=== PATIENT | female | born 1970 | race Caucasian/White ===

== ENCOUNTER 2017-09-27 12:23 | Observation (INO) | payer OTHER ==
--- OUTSIDE RECORDS SUMMARY | 2017-09-27 12:26 | XMS REPORT | Clinical Summary ---
:1970 Author Organization [facility] Address [address] [place] [address] Phone Care Team Providers Name Role Phone Unavailable Primary Care Provider Unavailable Allergies No Known Allergies Current Medications Prescription Sig. Disp. Refills Start Date End Date Status venlafaxine Take 150 mg by Active (EFFEXOR-XR) 150 MG 24 mouth daily. hr capsule folic acid (FOLVITE) 1 Take 1 mg by Active MG tablet mouth daily. ALPRAZolam (XANAX) 0.25 Take 0.25 mg by 04/10/2014 Active MG tablet mouth every 8 (eight) hours as needed. hydroxychloroquine Take 400 mg by Active (PLAQUENIL) 200 mg mouth daily . tablet levothyroxine Take 50 mcg by Active (SYNTHROID, LEVOTHROID) mouth Every 50 MCG tablet morning on an empty stomach. cholecalciferol, Take 2,000 Units Active vitamin D3, 2,000 unit by mouth daily. Tab acetaminophen (TYLENOL) Take by mouth Active 325 MG tablet every 4 (four) hours as needed for Pain. ferrous sulfate 47.5 mg Take 25 mg by Active iron TbER mouth 2 (two) times daily . pantoprazole (PROTONIX) Take 40 mg by Active 40 MG tablet mouth daily as needed . bumetanide (BUMEX) 1 MG Take 1 tablet (1 90 tablet 3 01/07/2016 Active tablet mg total) by mouth daily. magnesium oxide Take 0.5 tablets 30 tablet 6 01/07/2016 Active (MAG-OX) 400 mg tablet (200 mg total) by mouth daily. metoprolol (TOPROL-XL) Take 1 tablet (50 90 tablet 0 01/07/2016 Active 50 MG 24 hr tablet mg total) by mouth daily. allopurinol (ZYLOPRIM) Take 300 mg by 11/05/2015 Active 300 MG tablet mouth daily. aspirin 81 MG EC tablet Take 1 tablet (81 90 tablet 3 01/07/2016 mg total) by 7 mouth daily. metolazone (ZAROXOLYN) Take 1 tablet 30 tablet 6 01/07/2016 2.5 MG tablet (2.5 mg total) by 7 mouth every other day as needed (weight gain of > 3 lbs, unresponsive to bumex). amiodarone (PACERONE) Take 1 tablet 90 tablet 3 01/07/2016 200 MG tablet (200 mg total) by 7 mouth daily. atorvastatin (LIPITOR) Take 1 tablet (80 90 tablet 3 01/07/2016 80 MG tablet mg total) by 7 mouth nightly. potassium chloride SA Take 0.5 tablets 45 tablet 3 01/07/2016 (K-DUR,KLOR-CON) 20 MEQ (10 mEq total) by 7 tablet mouth daily. Active Problems Problem Noted Date Multifocal pneumonia 04/13/2016 S/P aortic valve replacement with metallic valve 12/20/2015 S/P MVR, AVR, tricuspid valve repair 12/17; ileus/SBO 12/20/2015 S/P TVR (tricuspid valve repair) 12/20/2015 Postprocedural hypotension 12/18/2015 Chronic atrial fibrillation (HCC) 12/18/2015 Acute pulmonary insufficiency following thoracic surgery (HCC) 12/18/2015 Postoperative anemia due to acute blood loss 12/18/2015 Thrombocytopenia (HCC) 12/18/2015 Hyperglycemia 12/18/2015 Antiphospholipid syndrome (HCC) 12/11/2015 Atrial flutter (HCC) 12/11/2015 CKD (chronic kidney disease) stage 3, GFR 30-59 ml/min 12/11/2015 Anemia associated with acute blood loss 09/13/2015 Warfarin-induced coagulopathy (HCC) 09/13/2015 NURY (acute kidney injury) (HCC) 09/13/2015 Gastrointestinal hemorrhage 09/12/2015 Overview: UPDATED BY ICD10 SNOMED/IMO UPDATES Normochromic normocytic anemia 08/22/2015 NURY (acute kidney injury) ([facility]) 08/22/2015 Chronic anticoagulation 08/22/2015 Diabetes mellitus (HCC) 08/22/2015 Acute respiratory failure with hypoxia ([facility]) 08/22/2015 Respiratory distress 08/18/2015 Bilateral pneumonia 08/18/2015 Acute exacerbation of CHF (congestive heart failure) ([facility]) 08/18/2015 Hypokalemia 05/21/2015 Severe dehydration 05/20/2015 Troponin level elevated 05/20/2015 Epistaxis 04/22/2015 Overview: Recurrent and severe despite attempts at cautery. Meanwhile, we cannot discontinue anticoagulation. 04/22/2015 Sarath Escobar MD Pack out tomorrow and possible explanation. 04/23/2015 Sarath Escobar MD Left atrial flutter by electrocardiogram ([facility]) 04/15/2015 Overview: Recurrent but a poor candidate for RFA. Pursue rate control. 04/15/2015 Sarath Escobar MD Current rate control adequate on multiple Rx. 04/23/2015 Sarath Escobar MD Tricuspid regurgitation 04/08/2015 Overview: Our principle issue and although her weight has not changed, she feels better. jmw 04/08/2015 Tricuspid insufficiency 04/02/2015 Overview: Severe due to volume overload and RV decompensation. 04/02/2015 Sarath Escobar MD Substantially better with diuresis. 04/15/2015 Sarath Escobar MD Compensated at current volume state. 04/23/2015 Sarath Escobar MD Focal glomerular sclerosis 02/14/2015 Hyperlipidemia 11/21/2014 Ovarian cyst 08/12/2014 Lupus anticoagulant disorder (HCC) 04/16/2014 Overview: 07/02/14 Progressive thrombus on MV despite adequate OAC will require MVR after stabilization if possible. 07/05 She remains in a systemic inflammatory state but is not worsening. Meanwhile, she is not responding well to UFH. Discussed with Dr. Mahajan and Dr. Madrid. We'll start DTI and hopefully continue empiric Abx. Sarath Escobar MD 07/25 she had resolution on DTI but she has developed liver failure. We should move from arg to angiomax to continue AC and consider non warfarin therapy despite the absence of data. Sarath Escobar MD After epistaxis, nearing therapeutic INR. 04/23/2015 Sarath Escobar MD S/P MVR (mitral valve replacement) 04/16/2014 Lumbar spinal stenosis 04/16/2014 Cervical disc disease with myelopathy 02/03/2013 Herniated nucleus pulposus, cervical 01/24/2013 Hypertension Overview: treated since 2006 Renal failure Overview: 06/[address] Awan. We'll allow more time for renal recovery before operation. Tentatively, we'll look at next week. Sarath Escobar MD Diabetes (HCC) Encounters Date Type Specialty Care Team Description 10/28/2016 Hospital Encounter Radiology [facility] Douglass Rheumatic mitral valve MD Abraham disease;Rheumatic tricuspid insufficiency 10/23/2016 Outside Orders Central Scheduling Monroe Douglass Rheumatic mitral valve MD Abraham disease (Primary Dx);Rheumatic tricuspid insufficiency after 09/26/2016 Immunizations Name Dates Previously Given Next Due Influenza Three-TIV PF 5+ YRS 04/21/2015 Family History Medical History Relation Name Comments Drug abuse Brother Heart disease Brother Arthritis Sister Relation Name Status Comments Brother Father Alive Mother Alive Sister Alive Social History Tobacco Use Types Packs/Day Years Used Date Former Smoker 1 30 Quit: 07/01/2014 Smokeless Tobacco: Never Used Alcohol Use Drinks/Week oz/Week Comments Yes social occasions Sex Assigned at Date Recorded Not on file Last Filed Vital Signs Not on file Plan of Treatment Health Maintenance Due Date Last Done Comments INFLUENZA VACCINE 02/21/2018 Implants Implanted Type Area Floor Covering Installer Device Expiration Model / Serial / Identifier Date Lot Dbx Rina,0.5cc - [id number] Bone N/A: MUSCULOSKELETAL 2014 [id number] / Implanted: Qty: 1 on 02/03/2013 by Chaes Cope MD Neck TRANSPLANT [id number] / Kit,Surgiflow Thrombo Strl 8ml - [id number] Cement/F N/A: RENE 2013 [id number] / Implanted: Qty: 1 on 02/03/2013 by Chase Cope MD iller/Ad Neck / [id number] Spacer,Cervical Lordotic Peek [place] Zero-P Va Std Ti 8mm - [id number] Spine N/ A: [employer] 05/22/2022 [id number] / Implanted: Qty: 1 on 02/03/2013 by Chase Cope MD Neck / [id number] Screw,Cervical Selfdrill Zero-P Va Ti 3.7x16mm - [id number] Spine N/A: [employer] [id number] / Implanted: Qty: 2 on 02/03/2013 by Chase Cope MD Neck / [id number] Valve,Mitral Mosaic 31mm - [id number] Valves [employer] CARDIAC 07/30/2018 [id number] / Implanted: Qty: 1 on 01/01/2015 by David Awan MD SURGERY [id number] / Valve Mitrl [facility] Std Mstr 27mm [id number] - [id number] Valves N/A: ST EMILY 11/09/2020 [id number] / Implanted: Qty: 1 on 12/18/2015 by Wilber Gross MD Heart MED:CARDIAC SURG [id number] / Valve Aort [facility] [place] 21mm - [id number] Valves N/A: ST EMILY 10/23/2017 [id number] / Implanted: Qty: 1 on 12/18/2015 by Wilber Gross MD Aorta MED:CARDIAC SURG [id number] / Results RHYTHM STRIP - SCAN (02/23/2017 10:21 AM)NM myocardial perfusion PET (rest and stress) (10/28/2016 2:33 PM) Specimen Performing Laboratory [facility] FINAL REPORT PROCEDURE:Rest/Stress MYOCARDIAL PERFUSION PET with regadenoson\XA9\ CPT CODE:98013 INDICATION:Rheumatic mitral and tricuspid valve disease HISTORY:Cardiac risk factors: Diabetes, hypertension, hyperlipidemia. Other cardiovascular history: CHF and h/o MVR in 10/2015. Recent cardiac symptoms: None. Current cardiovascular-related medications: Aspirin, amiodarone, bumetanide, coumadin, Lipitor, losartan, metoprolol. PROTOCOL:Limited low-dose CT imaging was performed for attenuation correction. 40.0 mCi of Rb-82 chloride was injected iv at rest, and gated PET (positron emission tomography) images were obtained. Subsequently, 40.0 mCi of Rb-82 chloride was injected iv at expected peak pharmacologic effect, and gated PET images were obtained. PRELIMINARY STRESS TEST DATA FROM NONINVASIVE CARDIOLOGY: Pharmacologic stress was by 10-second iv infusion of 0.4 mg of regadenoson. Radiotracer was injected 30 seconds after start of stress. Heart rate was 75 beats/min at rest and 76 beats/min (44% of MPHR) at tracer injection. BP was 90/51 mmHg at rest and 99/43 mmHg at tracer injection. Stress was stopped for predetermined endpoint. The patient experienced dyspnea and flushing; treatment was not required. Preliminary ECG evaluation revealed sinus rhythm at rest and no ischemic changes with stress. (Final ECG interpretation and other stress and monitoring data are reported separately by Cardiology.) IMAGING FINDINGS:Study quality is good. Images obtained at rest and after stress injection show normal tracer uptake. LV volume appears mildly dilated. RV volume appears normal. Gated images obtained immediately after stress and at rest show mild hypokinesis of the mid to apical inferior LV wall segments. LVEF at rest is 42%. LVEF at stress is 46%. IMPRESSION: 1. Abnormal study.2. Appropriate pharmacologic stress.3. Normal myocardial perfusion.4. Mildly reduced resting LV function. No deterioration of function is noted with pharmacologic stress.5. Extracardiac tracer distribution is normal.6. No previous [facility] study for comparison. NONINVASIVE RISK STRATIFICATION: The above findings are considered intermediate risk (1% to 3% annual mortality rate) based on the following criterion: - Mild/moderate resting left ventricular dysfunction (LVEF 35% to 49%) (JACC. 2012;59(9):857-81.) Signed: Nadia Goodwin MD Report Verified Date/Time:10/28/2016 15:33:49 Reading Location: [address] Reading Room Procedure Note Interface, External Ris In - 10/28/2016 3:36 PM CDT FINAL REPORT PROCEDURE: Rest/Stress MYOCARDIAL PERFUSION PET with regadenoson\XA9\ CPT CODE: 29024 INDICATION: Rheumatic mitral and tricuspid valve disease HISTORY: Cardiac risk factors: Diabetes, hypertension, hyperlipidemia. Other cardiovascular history: CHF and h/o MVR in 10/2015. Recent cardiac symptoms: None. Current cardiovascular-related medications: Aspirin, amiodarone, bumetanide, coumadin, Lipitor, losartan, metoprolol. PROTOCOL: Limited low-dose CT imaging was performed for attenuation correction. 40.0 mCi of Rb-82 chloride was injected iv at rest, and gated PET (positron emission tomography) images were obtained. Subsequently, 40.0 mCi of Rb-82 chloride was injected iv at expected peak pharmacologic effect, and gated PET images were obtained. PRELIMINARY STRESS TEST DATA FROM NONINVASIVE CARDIOLOGY: Pharmacologic stress was by 10-second iv infusion of 0.4 mg of regadenoson. Radiotracer was injected 30 seconds after start of stress. Heart rate was 75 beats/min at rest and 76 beats/min (44% of MPHR) at tracer injection. BP was 90/51 mmHg at rest and 99/43 mmHg at tracer injection. Stress was stopped for predetermined endpoint. The patient experienced dyspnea and flushing; treatment was not required. Preliminary ECG evaluation revealed sinus rhythm at rest and no ischemic changes with stress. (Final ECG interpretation and other stress and monitoring data are reported separately by Cardiology.) IMAGING FINDINGS: Study quality is good. Images obtained at rest and after stress injection show normal tracer uptake. LV volume appears mildly dilated. RV volume appears normal. Gated images obtained immediately after stress and at rest show mild hypokinesis of the mid to apical inferior LV wall segments. LVEF at rest is 42%. LVEF at stress is 46%. IMPRESSION: 1. Abnormal study. 2. Appropriate pharmacologic stress. 3. Normal myocardial perfusion. 4. Mildly reduced resting LV function. No deterioration of function is noted with pharmacologic stress. 5. Extracardiac tracer distribution is normal. 6. No previous [facility] study for comparison. NONINVASIVE RISK STRATIFICATION: The above findings are considered intermediate risk (1% to 3% annual mortality rate) based on the following criterion: - Mild/moderate resting left ventricular dysfunction (LVEF 35% to 49%) (JACC. 2012;59(9):857-81.) Signed: Nadia Goodwin MD Report Verified Date/Time: 10/28/2016 15:33:49 Reading Location: [address] Med Reading Room Treadmill tolerance(Non-Nuclear Treadmill) (10/28/2016 2:17 PM) Specimen Performing Laboratory [employer] Narrative Protocol Name Regadenoson Time In Exercise Phase 00:01:00 Max. Systolic BP 99 mmHg Max Diastolic BP 43 mmHg Max Heart Rate 76 BPM Max Predicted Heart Rate 172 BPM Reason For Termination Predetermined end point Reason for Test Pre Op Cardiac Clearance Target HR Formula (220 - Age)*100% Arrhythmias Resting ECG Normal sinus rhythm ST Changes No Significant Changes Overall Impression Indeterminate due to pharmacological stress Chest Pain none HR Response To Exercise BP Response To Exercise ASA AMIODARONE bumetadine Coumadin LIPITOR LOSARTAN metoprolol Confirmed by fellow Jaime Alford ([id number]) on 10/28/2016 2:53:19 PM Confirmed by MD LARIOS JORGE ([id number]) on 11/02/2016 2:38:54 PM Procedure Note Interface, External Ris In - 11/02/2016 2:39 PM CDT Protocol Name Regadenoson Time In Exercise Phase 00:01:00 Max. Systolic BP 99 mmHg Max Diastolic BP 43 mmHg Max Heart Rate 76 BPM Max Predicted Heart Rate 172 BPM Reason For Termination Predetermined end point Reason for Test Pre Op Cardiac Clearance Target HR Formula (220 - Age)*100% Arrhythmias Resting ECG Normal sinus rhythm ST Changes No Significant Changes Overall Impression Indeterminate due to pharmacological stress Chest Pain none HR Response To Exercise BP Response To Exercise ASA AMIODARONE bumetadine Coumadin LIPITOR LOSARTAN metoprolol Confirmed by fellow Jaime Alford ([id number]) on 10/28/2016 2:53:19 PM Confirmed by MD LARIOS JORGE ([id number]) on 11/02/2016 2:38:54 PM after 09/26/2016
[2017-09-27 14:58] LABS: Absolute Lymphocytes (CBC) 0.6 K/uL (0.7-4.9); Absolute Monocytes 0.3 K/uL (0.1-1.3); Absolute Neutrophil 10.4 K/uL (1.8-8.0); Basophils % 0.4 % (0-1.3); Eosinophils % 0.2 % (0-4.4); Hematocrit 20.9 % (36.0-45.0); Lymphocytes % 4.9 % (15.3-44.8); MCH 31.4 pg (27.0-35.0); MCV 98.4 fL (80-100); MPV 8.2 fL (7.6-11.3); Monocytes % 2.5 % (3.3-12.3); Protime INR 2.21; RBC Red Blood Cell Count 2.12 M/uL (3.86-4.86)
[2017-09-27 15:07] LABS: Potassium 4.3 mEq/L (3.6-5.0)
[2017-09-27 15:14] LABS: Albumin 3.8 g/dL (3.2-5.5); Bilirubin Direct 0.1 mg/dL (0-0.2); Bilirubin Total 0.8 mg/dL (0.3-1.2); Protein, Total 6.6 g/dL (6.0-8.3)
[2017-09-27 15:19] LABS: Urine Blood TRACE (NEG); Urine Glucose NEGATIVE (NEG); Urine Protein 2+ (NEG)
[2017-09-27 15:20] LABS: Magnesium 1.2 mg/dL (1.8-2.5)
--- NOTE | 2017-09-27 16:29 | ER ---
Nurse's Notes [facility] Name: June Stokes Age: 47 yrs Sex: Female : 1970 Arrival Date: 09/27/2017 Time: 12:28 Bed 27 Private MD: out of town, doctor Diagnosis: Anemia in chronic diseases classified elsewhere-Symptomatic Presentation: 09/27 12:42 Presenting complaint: Patient states: Dr. Waite office called me and told me my Hgb- hj 6.9; told me to come up here and be admitted;. Transition of care: patient was not received from another setting of care. Onset of symptoms was September 27, 2017. Initial Sepsis Screen: Does the patient meet any 2 criteria? No. Patient's initial sepsis screen is negative. Does the patient have a suspected source of infection? No. Patient's initial sepsis screen is negative. Care prior to arrival: None. 12:42 Method Of Arrival: Ambulatory 12:42 Acuity: CA 3 hj Triage Assessment: 12:44 General: Appears in no apparent distress. uncomfortable, Behavior is calm, cooperative, hj appropriate for age. Pain: Denies pain. 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: 12:44 LMP N/A - Post-menopause hj Historical: - Allergies: 12:44 No Known Allergies; hj - Home Meds: 12:44 Allopurinol Oral [Active]; Amiodarone Oral [Active]; aspirin 325 mg Oral tab 1 tab once hj daily [Active]; atorvastatin 80 mg Oral tab 1 tab once daily [Active]; Bumetanide Oral [Active]; Coumadin Oral [Active]; Folic Acid Oral [Active]; Humalog Sub-Q [Active]; humulin [Active]; hydroxychloroquine 200 mg Oral tab 2 tabs once daily [Active]; levothyroxine 50 mcg tab 1 tab once daily [Active]; magnesium oxide 400 mg Oral cap daily [Active]; metolazone 2.5 mg Oral tab 1 tab once daily [Active]; Metoprolol Tartrate Oral [Active]; potassium chloride 20 mEq Oral TbER 1 tab once daily [Active]; prednisone 20 mg Oral tab once daily [Active]; venlafaxine 150 mg Oral cp24 1 cap once daily [Active]; - PMHx: 12:44 antiphospholipid syndrome; Diabetes - IDDM; heart disease; Hemolytic Anemia; hj Hypertension; Hypothyroidism; mitral valve prolapse; - PSHx: 12:44 mitral valve replacement; Hysterectomy; surgery to right arm (clot); hj - Immunization history:: Adult Immunizations up to date. - Social history:: Smoking status: Patient/guardian denies using tobacco, never smoked. Screenin:50 Abuse screen: Denies threats or abuse. Nutritional screening: No deficits noted. tl3 Tuberculosis screening: No symptoms or risk factors identified. Fall Risk None identified. Assessment: 13:33 General: Appears in no apparent distress. comfortable, well groomed, well developed, tl3 well nourished, Behavior is calm, cooperative, appropriate for age. Pain: Denies pain. Neuro: Level of Consciousness is awake, alert, obeys commands, Oriented to person, place, time, situation, Appropriate for age. Cardiovascular: Denies chest pain, Heart tones S1 S2 present Capillary refill < 3 seconds in bilateral fingers. Cardiovascular: Reports blood test shoe HGB 6.9 at primary care office today here for transfusion, hemolytic anemia, multiple heart valves replaced. Respiratory: Breath sounds are clear Breath sounds are coarse bilaterally. GI: No signs and/or symptoms were reported involving the gastrointestinal system. : No signs and/or symptoms were reported regarding the genitourinary system. EENT: No signs and/or symptoms were reported regarding the EENT system. Derm: Bruising that is dark purple, on right arm and left arm. Musculoskeletal: No signs and/or symptoms reported regarding the musculoskeletal system. 14:44 Reassessment: Patient appears in no apparent distress at this time. No changes from tl3 previously documented assessment. Patient and/or family updated on plan of care and expected duration. Pain level reassessed. Patient is alert, oriented x 3, equal unlabored respirations, skin warm/dry/pink. mid line placed, blood drawn by JERILYN Hanna and sent to lab. 15:10 Reassessment: critical lab alert, 6.7 hemoglobin, 20.9 HCT, IMAN Curry notified. em 15:48 Reassessment: Patient appears in no apparent distress at this time. No changes from tl3 previously documented assessment. Patient and/or family updated on plan of care and expected duration. Pain level reassessed. Patient is alert, oriented x 3, equal unlabored respirations, skin warm/dry/pink. pt sleeping, mother went home. 17:10 Reassessment: Patient appears in no apparent distress at this time. No changes from tl3 previously documented assessment. Patient and/or family updated on plan of care and expected duration. Pain level reassessed. Patient is alert, oriented x 3, equal unlabored respirations, skin warm/dry/pink. pt awaiting admit, no needs at this time. 20:18 Reassessment: Patient appears in no apparent distress at this time. No changes from tl3 previously documented assessment. Patient and/or family updated on plan of care and expected duration. Pain level reassessed. Patient is alert, oriented x 3, equal unlabored respirations, skin warm/dry/pink. report called to Sudha JEAN-BAPTISTE. Vital Signs: 12:44 BP 120 / 73; Pulse 99; Resp 18; Temp 98.2(TE); Pulse Ox 98% on R/A; Weight 99.79 kg; hj Height 5 ft. 6 in. (167.64 cm); Pain 0/10; 14:44 BP 109 / 91; Pulse 99; Resp 20; Pulse Ox 100% on 2 lpm NC; tl3 15:48 BP 94 / 73; Pulse 88; Resp 18; Pulse Ox 100% on 2 lpm NC; tl3 17:10 BP 110 / 82; Pulse 92; Resp 18; Pulse Ox 100% ; tl3 20:18 Pulse 83; Resp 16; Pulse Ox 100% ; tl3 12:44 Body Mass Index 35.51 (99.79 kg, 167.64 cm) ED Course: 12:28 Patient arrived in ED. mr 12:29 out of town, doctor is Private Physician. mr 12:43 Triage completed. hj 12:44 Arm band placed on right wrist. hj 13:11 Luis Bustillo PA is PHCP. cp 13:11 Pietro Malik MD is Attending Physician. cp 13:33 Ashli Cartwright, JERILYN is Primary Nurse. tl3 13:50 Patient has correct armband on for positive identification. Bed in low position. Call tl3 light in reach. Side rails up X 1. Adult w/ patient. Warm blanket given. 13:50 No provider procedures requiring assistance completed. Missed attempt(s): 20 gauge in tl3 right forearm. 14:20 EKG done, by optometric technologist. reviewed by Luis VALERIO. at1 14:45 Accessed peripheral vein via ultrasound, utilizing dynamic ultrasound technique using la1 18G Sureflo IV catheter. 16:02 Served as a ingot buggy operator during rectal exam. tl3 16:28 Rashida Pate MD is Hospitalizing Provider. cp 17:13 Bb Add On Sent. tl3 20:18 No apparent distress. Awaiting: to go to room. tl3 20:18 Patient admitted, IV remains in place. tl3 Administered Medications: No medications were administered Outcome: 16:29 Decision to Hospitalize by Provider. cp 20:18 Admitted to Med/surg accompanied by tech, via wheelchair, with chart, Report called to tl3 JERILYN Haley 20:18 Condition: stable 20:18 Instructed on the need for admit. 21:08 Patient left the ED. tl3 Signatures: Sherry Menon mr Crabtree, Osman, LOCKSTITCH BACK MAKER LOCKSTITCH BACK MAKER em Oliva ramos, hall clerk EKG Tat1 Jacques Spaulding RN RN la1 Tk Chapman RN Luis Washington PA PA cp Ashli Cartwrigth, RN RN tl3 Corrections: (The following items were deleted from the chart) 12:46 12:44 Pulse 99bpm; Resp 18bpm; Pulse Ox 95% RA; Temp 98.2F Temporal; 99.79 kg; Height 5 hj ft. 6 in.; BMI: 35.5; Pain 0/10; hj 12:47 12:44 Pulse 99bpm; Resp 18bpm; Pulse Ox 98% RA; Temp 98.2F Temporal; 99.79 kg; Height 5 hj ft. 6 in.; BMI: 35.5; Pain 0/10; hj
--- NOTE | 2017-09-27 16:30 | EDPHYS ---
Physician Documentation [facility] Name: June Stokes Age: 47 yrs Sex: Female : 1970 Arrival Date: 09/27/2017 Time: 12:28 Bed 27 Private MD: out of town, doctor ED Physician Pietro Malik HPI: 09/27 14:15 This 47 yrs old Female presents to ER via Ambulatory with complaints of cp Abnormal Lab Results. 14:15 Onset: The symptoms/episode began/occurred gradually. cp 14:15 Associated signs and symptoms: Pertinent positives: general weakness, fatigue. Patient cp reports having blood drawn by office of Dr Waite and being told she needs to proceed to ED for evaluation of anemia. LEGAL SECRETARY: 12:44 LMP N/A - Post-menopause hj Historical: - Allergies: 12:44 No Known Allergies; hj - Home Meds: 12:44 Allopurinol Oral [Active]; Amiodarone Oral [Active]; aspirin 325 mg Oral tab 1 tab once hj daily [Active]; atorvastatin 80 mg Oral tab 1 tab once daily [Active]; Bumetanide Oral [Active]; Coumadin Oral [Active]; Folic Acid Oral [Active]; Humalog Sub-Q [Active]; humulin [Active]; hydroxychloroquine 200 mg Oral tab 2 tabs once daily [Active]; levothyroxine 50 mcg tab 1 tab once daily [Active]; magnesium oxide 400 mg Oral cap daily [Active]; metolazone 2.5 mg Oral tab 1 tab once daily [Active]; Metoprolol Tartrate Oral [Active]; potassium chloride 20 mEq Oral TbER 1 tab once daily [Active]; prednisone 20 mg Oral tab once daily [Active]; venlafaxine 150 mg Oral cp24 1 cap once daily [Active]; - PMHx: 12:44 antiphospholipid syndrome; Diabetes - IDDM; heart disease; Hemolytic Anemia; hj Hypertension; Hypothyroidism; mitral valve prolapse; - PSHx: 12:44 mitral valve replacement; Hysterectomy; surgery to right arm (clot); hj - Immunization history:: Adult Immunizations up to date. - Social history:: Smoking status: Patient/guardian denies using tobacco, never smoked. ROS: 14:16 Eyes: Negative for injury, pain, redness, and discharge. cp 14:16 Constitutional: Positive for fatigue, Negative for body aches, chills, fever, poor PO cp intake, weight loss. 14:16 ENT: Negative for drainage from ear(s), ear pain, sore throat, difficulty swallowing, difficulty handling secretions. 14:16 Cardiovascular: Negative for chest pain, edema, palpitations. 14:16 Respiratory: Negative for cough, shortness of breath, wheezing. 14:16 Abdomen/GI: Negative for abdominal pain, nausea, vomiting, and diarrhea, black/tarry stool, rectal bleeding. 14:16 Back: Negative for pain at rest, pain with movement, radiated pain. 14:16 Skin: Negative for cellulitis, rash. 14:16 Neuro: Positive for general weakness, Negative for altered mental status, dizziness, headache, loss of consciousness, syncope, near syncope. 14:16 All other systems are negative. Exam: 14:18 ECG was reviewed by the Attending Physician. cp 14:20 Constitutional: The patient appears in no acute distress, alert, awake, cp non-diaphoretic, non-toxic, well developed, well nourished. 14:20 Head/Face: Normocephalic, atraumatic. Eyes: Pupils equal round and reactive to light, cp extra-ocular motions intact. Lids and lashes normal. Conjunctiva and sclera are non-icteric and not injected. Cornea within normal limits. Periorbital areas with no swelling, redness, or edema. ENT: Nares patent. No nasal discharge, no septal abnormalities noted. Tympanic membranes are normal and external auditory canals are clear. Oropharynx with no redness, swelling, or masses, exudates, or evidence of obstruction, uvula midline. Mucous membranes moist. Neck: Trachea midline, no thyromegaly or masses palpated, and no cervical lymphadenopathy. Supple, full range of motion without nuchal rigidity, or vertebral point tenderness. No Meningismus. Chest/axilla: Normal chest wall appearance and motion. Nontender with no deformity. No lesions are appreciated. 14:20 Cardiovascular: Rate: normal, Rhythm: regular, Edema: is not appreciated, JVD: is not appreciated. 14:20 Respiratory: the patient does not display signs of respiratory distress, Respirations: normal, no use of accessory muscles, no retractions, no splinting, no tachypnea, labored breathing, is not present, Breath sounds: are clear throughout, no decreased breath sounds, no stridor, no wheezing. 14:20 Abdomen/GI: Inspection: abdomen appears normal, Bowel sounds: active, all quadrants, Palpation: abdomen is soft and non-tender, in all quadrants, rebound tenderness, is not appreciated, voluntary guarding, is not appreciated, involuntary guarding, is not appreciated. 14:20 Back: pain, is absent, ROM is normal. 14:20 Skin: cellulitis, is not appreciated, no rash present. 14:20 Neuro: Orientation: to person, place \T\ time. Mentation: lucid, able to follow commands, Cerebellar function: is grossly normal, Motor: moves all fours, strength is normal, Sensation: no obvious gross deficits. Vital Signs: 12:44 BP 120 / 73; Pulse 99; Resp 18; Temp 98.2(TE); Pulse Ox 98% on R/A; Weight 99.79 kg; hj Height 5 ft. 6 in. (167.64 cm); Pain 0/10; 14:44 BP 109 / 91; Pulse 99; Resp 20; Pulse Ox 100% on 2 lpm NC; tl3 15:48 BP 94 / 73; Pulse 88; Resp 18; Pulse Ox 100% on 2 lpm NC; tl3 17:10 BP 110 / 82; Pulse 92; Resp 18; Pulse Ox 100% ; tl3 20:18 Pulse 83; Resp 16; Pulse Ox 100% ; tl3 12:44 Body Mass Index 35.51 (99.79 kg, 167.64 cm) hj MDM: 13:11 Patient medically screened. 15:55 Data reviewed: vital signs, nurses notes, lab test result(s), EKG, and as a result, I will admit patient. 16:00 Counseling: I had a detailed discussion with the patient and/or guardian regarding: the historical points, exam findings, and any diagnostic results supporting the discharge/admit diagnosis, lab results, the need for further work-up and treatment in the hospital. 16:08 Physician consultation: Rashida Pate MD was called at 16:08, was contacted at 16:09, regarding admission, to the telemetry unit. patient's condition. 09/27 14:08 Order name: Basic Metabolic Panel; Complete Time: 15:50 09/27 15:51 Interpretation: Normal except: GLUC 187; BUN 53; CRE 2.09; GFR 25. cp 09/27 14:08 Order name: CBC with Diff; Complete Time: 15:50 cp 09/27 15:51 Interpretation: Normal except: WBC 11.3; RBC 2.12; HGB 6.7; HCT 20.9; MCV 98.4; RDW cp 19.0; MANDY% 92.0; LYM% 4.9; MN% 2.5; NEUT A 10.4; LYMA 0.6. 09/27 14:08 Order name: LFT's; Complete Time: 15:50 cp 09/27 14:08 Order name: Magnesium; Complete Time: 15:50 cp 09/27 14:08 Order name: PT-INR; Complete Time: 15:50 cp 09/27 14:08 Order name: Ptt, Activated; Complete Time: 15:50 cp 09/27 14:08 Order name: EKG; Complete Time: 14:09 cp 09/27 14:45 Order name: Type And Screen la1 09/27 14:52 Order name: Lactic Dehydrogenase; Complete Time: 15:50 EDMS 09/27 14:52 Order name: Retic Count; Complete Time: 15:50 EDMS 09/27 15:10 Order name: Urine Dipstick--Ancillary (enter results); Complete Time: 15:50 bd 09/27 15:57 Order name: Antibody Identification EDNC 09/27 16:08 Order name: Bb Add On bd 09/27 16:10 Order name: Packed RBC Leukored -1 EDNC 09/27 14:08 Order name: Cardiac monitoring; Complete Time: 15:48 cp 09/27 14:08 Order name: EKG - Nurse/Tech; Complete Time: 15:48 cp 09/27 14:08 Order name: IV Saline Lock; Complete Time: 15:48 cp 09/27 14:08 Order name: Labs collected and sent; Complete Time: 15:47 cp 09/27 14:08 Order name: O2 Per Protocol; Complete Time: 15:47 cp 09/27 14:08 Order name: O2 Sat Monitoring; Complete Time: 15:47 cp 09/27 14:08 Order name: Urine Dipstick-Ancillary (obtain specimen); Complete Time: 15:47 cp EC:18 Rate is 91 beats/min. Rhythm is regular. QRS interval is prolonged at 102 msec. QT cp interval is normal. T waves are Flattened in lead V3. Interpreted by me. Reviewed by me. Administered Medications: No medications were administered Disposition: 09/27/17 16:29 Hospitalization ordered by Rashida Pate for Observation. Preliminary diagnosis is Anemia in chronic diseases classified elsewhere - Symptomatic. - Bed requested for Telemetry/MedSurg (observation). - Status is Observation. tl3 - Condition is Stable. - Problem is chronic. - Symptoms are unchanged. UTI on Admission? No Addendum: 09/29/2017 20:15 Co-signature as Attending Physician, Pietro Malik MD. r n Signatures: Dispatcher [employer] EDMS Pietro Malik MD MD rn Joaquin, Henry RN Luis Washington PA PA cp Ruthie Kenyon RN RN Ashli Cartwright RN RN tl3 Corrections: (The following items were deleted from the chart) 09/27 15:51 15:50 Normal except: GLUC 187; BUN 53; CRE 2.09. cp cp 19:43 16:29 Hospitalization Ordered by Rashida Pate MD for Observation. Preliminary cg diagnosis is Anemia in chronic diseases classified elsewhere - Symptomatic. Bed requested for Telemetry/MedSurg (observation). Status is Observation. Condition is Stable. Problem is chronic. Symptoms are unchanged. UTI on Admission? No. cp 21:08 19:43 09/27/2017 16:29 Hospitalization Ordered by Rashida Pate MD for Observation. tl3 Preliminary diagnosis is Anemia in chronic diseases classified elsewhere - Symptomatic. Bed requested for Telemetry/MedSurg (observation). Status is Observation. Condition is Stable. Problem is chronic. Symptoms are unchanged. UTI on Admission? No. cg
--- NOTE | 2017-09-27 17:55 | EKG ---
Test Date: 2017-09-27 Test Time: 14:13:10 Hand Molder And Caster: CLAUDETTE MEASUREMENT RESULTS: Intervals: Rate: 91 OR: QRSD: 102 QT: 428 QTc: 526 [place]: P: OR: QRS: 27 T: 69 INTERPRETIVE STATEMENTS: Atrial fibrillation Nonspecific ST and T wave abnormality, probably digitalis effect Prolonged QT Abnormal ECG Compared to ECG 11/21/2015 06:51:06 Sinus rhythm no longer present First degree AV block no longer present ST (T wave) deviation still present Electronically Signed On 09-27-17 17:55:02 CDT by Ralegih Reid
[2017-09-27] MEDS ORDERED: ONDANSETRON 4 MG/2 ML VIAL IV PRN (20:48)
[2017-09-27] MEDS ORDERED: ACETAMINOPHEN 500 MG TAB PO PRN (20:48)
[2017-09-27 21:31] VITALS: BMI 35.9
[2017-09-28] MEDS ORDERED: NA CHLORIDE 0.9% 250 ML ONE ×4 (00:59→22:52)
[2017-09-28 01:54] LABS: Urine Appearance CLEAR; Urine Bilirubin NEGATIVE (NEG); Urine Blood NEGATIVE (NEG); Urine Color YELLOW; Urine Glucose NEGATIVE (NEG); Urine Protein 2+ (NEG); Urine Specific Gravity 1.015 (1.005-1.030); Urine Urobilinogen 0.2 mg/dL (0.2-1.0)
[2017-09-28 02:11] LABS: Urine Microscopic Reflex ORDER UMIC
[2017-09-28 03:23] LABS: Urine Bacteria <20 /HPF (<20); Urine Culture Reflex Order NOT NEEDED; Urine RBC <5 /HPF (NONE SEEN)
--- NOTE | 2017-09-28 05:25 | P.HP ---
Certification for Inpatient Patient admitted to: Observation With expected LOS: <2 Midnights Patient will require the following post-hospital care: None Practitioner: I am a practitioner with admitting privileges, knowledge of patient current condition, hospital course, and medical plan of care. Services: Services provided to patient in accordance with Admission requirements found in Title 42 Section 412.3 of the Code of Federal Regulations Patient History Date of Service: 09/27/17 Reason for admission: Anemic History of Present Illness: Patient is a 47-year-old female who came into the hospital with anemia. 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 Patient also has history of atrial fibrillation. patient is been on anti coagulation for her anti phospholipid antibody syndrome which requires an INR greater than 2.5. Patient currently is taking Coumadin. Patient denies any signs of active bleeding. She states she normally requires blood transfusions and she believes this because of her hemolytic anemia. Patient's labs do not indicate any significant degree of hemolysis. Patient is on prednisone 30 mg daily because of the hemolysis. Patient will be admitted to the hospital for blood transfusion and will possibly be discharged afterwards. Allergies No Known Allergies Allergy (Verified 09/27/17 21:31) Home Medications: Metoprolol Succinate 50 mg PO DAILY 08/18/14 Allopurinol 300 mg PO DAILY 08/30/14 Folic Acid 1 mg PO DAILY #30 tablet 08/31/14 Amiodarone HCl 200 mg PO DAILY 10/16/15 Atorvastatin Calcium 80 mg PO BEDTIME 10/16/15 Cholecalciferol (Vitamin D3) [Vitamin D3] 2,000 unit PO DAILY 10/16/15 Ferrous Sulfate [Slow Release Iron] 65 mg PO BEDTIME 10/16/15 Hydroxychloroquine [Plaquenil*] 400 mg PO DAILY 10/16/15 Potassium Chloride 10 meq PO DAILY 10/16/15 Prednisone [Deltasone*] 30 mg PO DAILY 10/17/15 Venlafaxine HCl [Venlafaxine HCl ER] 150 mg PO DAILY 10/17/15 Alprazolam [Xanax] 0.25 mg PO PRN PRN 05/01/17 Warfarin Sodium [Coumadin*] 10 mg PO SEECOM 05/01/17 Aspirin Chewable [Aspirin Chewable*] 81 mg PO DAILY #90 tab.chew 05/07/17 Levothyroxine [Synthroid*] 0.088 mg PO [id number] #30 tab 05/07/17 Pantoprazole [Protonix Tab*] 40 mg PO BIDAC #60 tab 05/07/17 Bumetanide [Bumex] 2 mg PO DAILY 09/28/17 Cyanocobalamin (Vitamin B-12) [Vitamin B12] 5,000 mcg PO DAILY 09/28/17 Losartan Potassium 25 mg PO DAILY 09/28/17 Metolazone [Zaroxolyn*] 2.5 mg PO PRN PRN 09/28/17 - Past Medical/Surgical History Has patient received pneumonia vaccine in the past: Yes Diabetic: No -: CHF, systolic, Low EF per patient -: Chronic renal disease -: Aortic Stenosis/Mitral valve disease -: Spinal stenosis with Neuropathy of L spine -: Atrial fibrillation -: Chronic anticoagulation -: Hemolytic Anemia -: Mitral valve repair due to Hyperclots, December 2014 -: Antiphospholipid Syndrome, Diagnosed in 2006 -: HTN -: Hypothyroidism -: Depression -: Mitral valve replaced x2 -: Hysterectomy -: Right arm bypass due to DVT Psychosocial/ Personal History: for 26 years, Children-2 boys, 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 - Family History Sister Medical History: Other (see notes) Notes: rheumatoid arthritis Brother Medical History: Heart disease - Social History Smoking Status: Former smoker Alcohol use: Yes CD- Drugs: No Caffeine use: Yes Place of Residence: Home Review of Systems 10-point ROS is otherwise unremarkable Physical Examination - Vital Signs Temperature: 97.4 F Blood Pressure: 197/88 Pulse: 79 Respirations: 18 Pulse Ox (%): 99 - Physical Exam General: Alert, In no apparent distress, Oriented x3 HEENT: Atraumatic, PERRLA, Mucous membr. moist/pink, EOMI, Sclerae nonicteric Neck: Supple, 2+ carotid pulse no bruit, No LAD, Without JVD or thyroid abnormality Respiratory: Clear to auscultation bilaterally, Normal air movement Cardiovascular: Regular rate/rhythm, Normal S1 S2, Systolic murmur Gastrointestinal: Normal bowel sounds, Soft and benign, Non-distended, No tenderness, No masses, No rebound Musculoskeletal: No clubbing, No swelling, No tenderness Integumentary: No rashes Neurological: Normal gait, Normal speech, Normal tone, Sensation intact, Cranial nerves 3-12 intact, Normal affect, Abnormal strength Lymphatics: No axilla or inguinal lymphadenopathy - Studies Laboratory Data (last 24 hrs) 09/27/17 14:42: PT 26.3 H, INR 2.21, APTT 27.9 09/27/17 14:42: WBC 11.3 H D, Hgb 6.7 L*, Hct 20.9 L*, Plt Count 245 09/27/17 14:42: Sodium 143, Potassium 4.3, BUN 53 H, Creatinine 2.09 H, Glucose 187 H, Magnesium 1.2 L* D, Total Bilirubin 0.8, AST 25, ALT 32, Alkaline Phosphatase 128 H Assessment & Plan - Problems (Diagnosis) (1) Anti-phospholipid antibody syndrome Current Visit: Yes Status: Acute (2) Anemia Onset Date: 11/22/15 Current Visit: No Status: Acute Qualifiers: Anemia type: other cause Other causes of anemia: acute posthemorrhagic Qualified Code(s): D62 - Acute posthemorrhagic anemia (3) Hemolytic anemia Onset Date: 08/20/14 Current Visit: No Status: Acute (4) Chronic renal failure Onset Date: 08/20/14 Current Visit: No Status: Chronic Qualifiers: Chronic kidney disease stage: stage 3 (moderate) Qualified Code(s): N18.3 - Chronic kidney disease, stage 3 (moderate) (5) Chronic steroid use Current Visit: No Status: Chronic (6) H/O heart valve replacement with mechanical valve Current Visit: No Status: Chronic (7) History of pulmonary embolism Current Visit: No Status: Chronic (8) Hypertension Onset Date: 08/20/14 Current Visit: No Status: Chronic Qualifiers: Hypertension type: essential hypertension Qualified Code(s): I10 - Essential (primary) hypertension (9) Hypothyroidism Onset Date: 05/03/17 Current Visit: No Status: Chronic Qualifiers: Hypothyroidism type: unspecified Qualified Code(s): E03.9 - Hypothyroidism , unspecified - Plan Plan: 1. Transfuse 2 units of packed red blood cells 2. Monitor H&H 3. Resume Coumadin 4. Resume prednisone 5. Continue with home medications 6. GI and DVT prophylaxis - Advance Directives Does patient have a Living Will: No Does patient have a Durable POA for Healthcare: No - Code Status/Comfort Care Code Status Assessed: Yes Code Status: Full Code Critical Care: No Time Spent Managing PTS Care (In Minutes): 50
[2017-09-28] MEDS ORDERED: ALPRAZOLAM 0.25 MG TABLET PO PRN (05:42)
[2017-09-28] MEDS ORDERED: METOLAZONE 2.5 MG TABLET PO PRN (05:42)
[2017-09-28] MEDS: LEVOTHYROXINE SOD 0.088 MG TAB PO SCH (06:33)
[2017-09-28 06:52] LABS: Absolute Lymphocytes (CBC) 0.8 K/uL (0.7-4.9); Absolute Monocytes 0.4 K/uL (0.1-1.3); Absolute Neutrophil 5.8 K/uL (1.8-8.0); Basophils % 0.4 % (0-1.3); Eosinophils % 0.8 % (0-4.4); Hematocrit 21.9 % (36.0-45.0); Lymphocytes % 11.7 % (15.3-44.8); MCH 33.2 pg (27.0-35.0); MCV 97.9 fL (80-100); MPV 7.8 fL (7.6-11.3); Monocytes % 5.1 % (3.3-12.3); RBC Red Blood Cell Count 2.24 M/uL (3.86-4.86)
[2017-09-28 07:12] LABS: Albumin 3.4 g/dL (3.2-5.5); Potassium 3.2 mEq/L (3.6-5.0); Protein, Total 5.8 g/dL (6.0-8.3)
[2017-09-28 07:22] LABS: Magnesium 1.2 mg/dL (1.8-2.5)
[2017-09-28 08:27] LABS: Anisocytosis 2+; Blood Morphology Comment NOTED (NOT SEEN); Platelet Estimate ADEQ
[2017-09-28 08:28] LABS: Basophilic Stippling 1+
[2017-09-28] MEDS: VENLAFAXINE HCL XR 75 MG CAP PO SCH (09:00)
[2017-09-28] MEDS: predniSONE 10 MG TAB PO SCH ×2 (09:00→09:22)
[2017-09-28] MEDS: VITAMIN D 1000 UNIT TAB PO SCH (09:21)
[2017-09-28] MEDS: BUMETANIDE 1 MG TABLET PO SCH (09:21)
[2017-09-28] MEDS: POTASSIUM CL SA 10 MEQ TAB PO SCH (09:21)
[2017-09-28] MEDS: ALLOPURINOL 300 MG TAB PO SCH (09:22)
[2017-09-28] MEDS: LOSARTAN POTASSIUM 50 MG TABLET PO SCH (09:22)
[2017-09-28] MEDS: FOLIC ACID 1 MG TABLET PO SCH (09:22)
[2017-09-28] MEDS: ASPIRIN 81 MG CHEWABLE TABLET PO SCH (09:22)
[2017-09-28] MEDS: METOPROLOL XL 50 MG TAB PO SCH (09:22)
[2017-09-28] MEDS: PANTOPRAZOLE 40MG TABLET PO SCH ×2 (09:23→17:29)
[2017-09-28] MEDS: CYANOCOBALAMIN 1,000 MCG TAB PO SCH (09:23)
[2017-09-28] MEDS: AMIODARONE HCL 200 MG TAB PO SCH (09:29)
[2017-09-28] MEDS: HYDROXYCHLOROQUINE 200MG TAB PO SCH (09:30)
[2017-09-28] MEDS ORDERED: Magnesium Sulfate 2gm IVPB 2 G/50 ML BAG IV ONE (11:59)
[2017-09-28] MEDS: KCL 20 MEQ/100 mL IVPB 20 MEQ/100 ML BAG IV SCH ×2 (12:00→14:00)
[2017-09-28] MEDS ORDERED: HEPARIN 10,000 UNIT/10 ML VIAL IV PRN (15:00)
[2017-09-28] MEDS ORDERED: HEPARIN/D5W 25,000 UNIT/500 ML BAG IV PRN (15:00)
[2017-09-28] MEDS ORDERED: HEPARIN 10,000 UNIT/10 ML VIAL IV SCH ×2 (15:00)
--- NOTE | 2017-09-28 16:57 | P.PN ---
Subjective Date of Service: 09/28/17 Chief Complaint: Anemic Patient seen and examined at bedside with RN. Chart reviewed. Currently patient is doing much better than before. Still complains of having some weakness however states that it is improved from yesterday. Review of Systems General: As per HPI Physical Examination - Vital Signs Temperature: 97.6 F Blood Pressure: 138/65 Pulse: 81 Respirations: 16 Pulse Ox (%): 97 - Physical Exam General: Alert, In no apparent distress HEENT: Atraumatic, PERRLA, EOMI Neck: Supple, JVD not distended Respiratory: Clear to auscultation bilaterally, Normal air movement Cardiovascular: Regular rate/rhythm, Normal S1 S2 Gastrointestinal: Normal bowel sounds, No tenderness Musculoskeletal: No tenderness Integumentary: Other ([place] BL UE) Neurological: Normal speech, Normal tone, Normal affect Lymphatics: No axilla or inguinal lymphadenopathy - Studies Medications List Reviewed: Yes Assessment & Plan - Problems (Diagnosis) (1) Symptomatic anemia Onset Date: 09/28/17 Current Visit: No Status: Acute Plan: Most Likely 2.2 to Acute Hemolytic Anemia vs GI bleed -S/P Transfusion 1 Units. Awaiting Another 1 unit at this time -Oncology consulted appreciated reccs -GI consult for possible Colonoscopy -GI consulted. Appreciated Recs -Colonoscopy refused by patient -recent EGD one month ago with gastritis -IV protonix. -DC after Transfusion and clinical Improvement (2) ARF (acute renal failure) Onset Date: 10/17/15 Current Visit: No Status: Chronic Plan: BUN/CR improving -IV fluids and avoid nephrotoxic agent Qualifiers: Acute renal failure type: unspecified Qualified Code(s): N17.9 - Acute kidney failure, unspecified (3) Anti-phospholipid antibody syndrome Current Visit: Yes Status: Chronic (4) CHF (congestive heart failure) Current Visit: No Status: Chronic Qualifiers: Qualified Code(s): I50.33 - Acute on chronic diastolic (congestive) heart failure (5) Chronic anticoagulation Current Visit: No Status: Chronic (6) Chronic steroid use Current Visit: No Status: Chronic (7) H/O heart valve replacement with mechanical valve Current Visit: No Status: Chronic (8) Hypertension Onset Date: 08/20/14 Current Visit: No Status: Chronic Qualifiers: Hypertension type: essential hypertension Qualified Code(s): I10 - Essential (primary) hypertension (9) Hypothyroidism Onset Date: 05/03/17 Current Visit: No Status: Chronic Qualifiers: Hypothyroidism type: unspecified Qualified Code(s): E03.9 - Hypothyroidism , unspecified Discharge Plan: Home Plan to discharge in: 24 Hours - Code Status/Comfort Care Code Status Assessed: Yes Critical Care: No
[2017-09-28] MEDS ORDERED: WARFARIN SODIUM 5 MG TAB PO SCH ×2 (17:00→21:00)
--- NOTE | 2017-09-28 20:16 | P.PN ---
Date of Service: 09/28/17 (Hematology) pt seen and examined at 12.30 pm on 09/28/17. Patient known to our service for her chronic and extensive Antiphospholipid antibody syndrome. She is chronic prednisone for autoimmune hemolytic anemia and awaiting to be started on rituximab soon. She was sent to the ER due to sudden drop in Hb to 6.7gm by Dr Waite. She apparently had supratherapeutic INR at 9 on 09/23/17 and INR was being optimized. Due to drop in Hb in the setting of supratherapeutic INR, concern was for possible GI bleed vs ? flare of AIHA. She reports feeling better since blood transfusion x1 and currently awaiting another transfusion. She seems to have multiple antibodies in the blood due to prior blood transfusions. She denies any major GI bleeds though intermittently has some brbpr which she attributes due to the high INR. Fatigue is at her baseline. Denies chest pain or sob. No abd pain, nausea, vomiting or diarrhea. She denies any pain other than any generalized body aches which is her usual and her baseline. A 10 point ROS was done and pertinent points as in HPI EXAM: Vitals reviewed. Afebrile and hemodynamically stable Gen: comfortable, conversing with family member, does not seem to be in respiratory distress HEENT: AT/NC/pallor +/ no icterus/ throat clear, no exudate or thrush RS: good respiratory effort; some decreased BS bases. CVS: regular, wnl Abd: soft, obese, no palpable organomegaly, BS+ Neuro: no focal neuro deficit, AAOx3 Ext: no edema. Skin: some ecchymoses at the venipuncture areas and some on the upper arms. Skin discoloration on the dorsal aspects of the feet. peripheral pulses palpable. no tenderness or warmth Labs: reviewed WBC 7/ Hb 7.4/ / Plt 202 Bun/ cr 53/2.29 LDH 497 retic 11% Haptoglobin <15 Problems/ Recommendations: 1. 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 She has h/o prior GI bleeds as well. Based on the increased retic ct and LDH, drop in Hb most likely due to a flare in the AIHA. Increase Prednisone to 60mg PO daily. Due to history of GI bleeds and also recent supratherapeutuc INR, she might have an element of chronic occult GI bleeds as well. Recommend that she has a GI evaluation while inpatient as it is very difficult to optimize her anticoagulation by parenteral route as out patient. She has CKD with GFR mostly less than 30 making heparin drip as the only choice to bridge her while she is awaiting a procedure off coumadin. She did not have a follow up with GI after her last EGD in Apr 2017 nor did she have a colonoscopy. If GI is doing the EGD/ colonoscopy, hold coumadin and change to heparin drip. Also prednisone can be given as IV (as Methylprednisone 50mg IV) and changed to PO prednisone 60mg daily once endoscopy is done. We will taper the prednisone based on the Hb stability as outpatient. - Check CBC, retic ct, LDH daily. Monitor for GI bleeding - Monitor for fluid overload given the multiple transfusions. - Maintain INR while on coumadin between 3-4. 2. Other medical issues including CKD, fluid overload: As per primary medical team and Nephrology. We will continue to follow. Please do not hesitate to call us should you have any questions or concerns. d/w Dr Pate.
[2017-09-28] MEDS ORDERED: FERROUS SULFATE 325 MG TAB PO SCH (21:00)
[2017-09-28] MEDS ORDERED: ATORVASTATIN 80 MG TAB PO SCH (21:00)
[2017-09-29] MEDS: LEVOTHYROXINE SOD 0.088 MG TAB PO SCH (05:39)
[2017-09-29 05:55] LABS: Absolute Lymphocytes (CBC) 0.8 K/uL (0.7-4.9); Absolute Monocytes 0.4 K/uL (0.1-1.3); Absolute Neutrophil 6.5 K/uL (1.8-8.0); Basophils % 0.5 % (0-1.3); Eosinophils % 0.7 % (0-4.4); Hematocrit 25.8 % (36.0-45.0); Lymphocytes % 10.1 % (15.3-44.8); MCH 33.2 pg (27.0-35.0); MCV 100.2 fL (80-100); MPV 7.8 fL (7.6-11.3); Monocytes % 5.1 % (3.3-12.3); RBC Red Blood Cell Count 2.57 M/uL (3.86-4.86)
[2017-09-29 06:03] LABS: Albumin 3.4 g/dL (3.2-5.5); Bilirubin Total 1.2 mg/dL (0.3-1.2); Potassium 4.3 mEq/L (3.6-5.0); Protein, Total 6.1 g/dL (6.0-8.3)
[2017-09-29 06:38] LABS: Anisocytosis 1+; Blood Morphology Comment NOTED (NOT SEEN); Macrocytosis 1+; Platelet Estimate ADEQ; Polychromasia 1+
[2017-09-29] MEDS: ASPIRIN 81 MG CHEWABLE TABLET PO SCH (08:05)
[2017-09-29] MEDS: PANTOPRAZOLE 40MG TABLET PO SCH (08:05)
[2017-09-29] MEDS: CYANOCOBALAMIN 1,000 MCG TAB PO SCH (08:08)
[2017-09-29] MEDS: VITAMIN D 1000 UNIT TAB PO SCH (08:08)
[2017-09-29] MEDS: FOLIC ACID 1 MG TABLET PO SCH (08:09)
[2017-09-29] MEDS: POTASSIUM CL SA 10 MEQ TAB PO SCH (08:09)
[2017-09-29] MEDS: VENLAFAXINE HCL XR 75 MG CAP PO SCH (08:10)
[2017-09-29] MEDS: HYDROXYCHLOROQUINE 200MG TAB PO SCH (08:10)
[2017-09-29] MEDS: LOSARTAN POTASSIUM 50 MG TABLET PO SCH (08:13)
[2017-09-29] MEDS: AMIODARONE HCL 200 MG TAB PO SCH (08:13)
[2017-09-29] MEDS: BUMETANIDE 1 MG TABLET PO SCH (08:14)
[2017-09-29] MEDS: ALLOPURINOL 300 MG TAB PO SCH (08:14)
[2017-09-29] MEDS: METOPROLOL XL 50 MG TAB PO SCH (08:14)
[2017-09-29 08:25] VITALS: O2SAT 96
[2017-09-29] MEDS ORDERED: predniSONE 20 MG TAB PO SCH ×2 (09:00)
[2017-09-29] MEDS ORDERED: METHYLPREDNISOLONE 125 MG INJ IV SCH (09:00)
[2017-09-29 12:36] VITALS: BP 144/73; TEMP 98
--- NOTE | 2017-09-29 14:06 | P.DS ---
Admission Date: 09/27/17 Discharge Date: 09/29/17 Disposition: ROUTINE DISCHARGE Discharge Condition: GOOD Reason for Admission: Anemic Consultations: Oncology - Problems (1) Symptomatic anemia Onset Date: 09/28/17 Status: Acute (2) ARF (acute renal failure) Onset Date: 10/17/15 Status: Resolved Qualifiers: Acute renal failure type: unspecified Qualified Code(s): N17.9 - Acute kidney failure, unspecified (3) Anti-phospholipid antibody syndrome Status: Chronic (4) CHF (congestive heart failure) Status: Chronic Qualifiers: Qualified Code(s): I50.33 - Acute on chronic diastolic (congestive) heart failure (5) Chronic anticoagulation Status: Chronic (6) Chronic steroid use Status: Chronic (7) H/O heart valve replacement with mechanical valve Status: Chronic (8) Hypertension Onset Date: 08/20/14 Status: Chronic Qualifiers: Hypertension type: essential hypertension Qualified Code(s): I10 - Essential (primary) hypertension (9) Hypothyroidism Onset Date: 05/03/17 Status: Chronic Qualifiers: Hypothyroidism type: unspecified Qualified Code(s): E03.9 - Hypothyroidism , unspecified Brief History of Present Illness: Patient is a 47-year-old female who came into the hospital with anemia. 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 Patient also has history of atrial fibrillation. patient is been on anti coagulation for her anti phospholipid antibody syndrome which requires an INR greater than 2.5. Patient currently is taking Coumadin. Patient denies any signs of active bleeding. She states she normally requires blood transfusions and she believes this because of her hemolytic anemia. Patient's labs do not indicate any significant degree of hemolysis. Patient is on prednisone 30 mg daily because of the hemolysis. Patient will be admitted to the hospital for blood transfusion and will possibly be discharged afterwards. Hospital Course: Overall during the hospital stay patient remained stable Patient issue is admitted to the hospital for symptomatic anemia most likely secondary to acute hemolytic anemia due to auto immune disease. Patient is diagnosed with anti phospholipid syndrome who came into the ER which shortness of breath. Was found to have a hemoglobin of 6.9. Patient was admitted for blood transfusion here in the hospital. Patient received 2 units of blood transfusion and her hemoglobin was up to 8.4. Oncology was consulted who recommended the patient be evaluated by GI for possible colonoscopy. Patient had an EGD done here in April which was consistent with gastritis. GI was consulted who recommended the patient and get a colonoscopy here in the hospital however patient refused stated that she has not been bleeding per rectum and would like to get outpatient colonoscopy if needed. GI was notified and they stated that it was okay for patient to get outpatient colonoscopy in their office with resistant EGD results in April. Patient was then discharged home under stable condition was asked to take prednisone 40 mg daily for her autoimmune disorder to help with the acute hemolytic anemia. Patient was also asked to follow up with oncology if there is any other questions or concerns after discharge. Patient demonstrated understanding and thus was discharged home under stable condition. Vital Signs/Physical Exam: Temp Pulse Resp BP Pulse Ox 98.0 F 84 16 144/73 H 97 09/29/17 12:00 09/29/17 12:00 09/29/17 12:00 09/29/17 12:00 09/29/17 12:00 General: Alert, In no apparent distress HEENT: Atraumatic, PERRLA, EOMI Neck: Supple, JVD not distended Respiratory: Clear to auscultation bilaterally, Normal air movement Cardiovascular: Regular rate/rhythm, Normal S1 S2 Gastrointestinal: Normal bowel sounds, No tenderness Musculoskeletal: No tenderness Integumentary: No rashes Neurological: Normal speech, Normal tone, Normal affect Lymphatics: No axilla or inguinal lymphadenopathy Laboratory Data at Discharge: WBC 7.8 K/uL (4.3-10.9) 09/29/17 05:35 Hgb 8.5 g/dL (12.0-15.0) L 09/29/17 05:35 Hct 25.8 % (36.0-45.0) L D 09/29/17 05:35 Plt Count 204 K/uL (152-406) 09/29/17 05:35 PT 26.3 SECONDS (9.5-12.5) H 09/27/17 14:42 INR 2.21 09/27/17 14:42 APTT 27.9 SECONDS (24.3-36.9) 09/27/17 14:42 Sodium 143 mEq/L (135-145) 09/29/17 05:35 Potassium 4.3 mEq/L (3.6-5.0) 09/29/17 05:35 BUN 46 mg/dL (6-20) H 09/29/17 05:35 Creatinine 1.81 mg/dL (0.44-1.00) H 09/29/17 05:35 Glucose 104 mg/dL (65-120) 09/29/17 05:35 Magnesium 1.8 mg/dL (1.8-2.5) D 09/28/17 18:28 Total Bilirubin 1.2 mg/dL (0.3-1.2) 09/29/17 05:35 AST 20 IU/L (10-42) 09/29/17 05:35 ALT 27 IU/L (10-60) 09/29/17 05:35 Alkaline Phosphatase 103 IU/L (42-121) 09/29/17 05:35 Home Medications: Metoprolol Succinate 50 mg PO DAILY 08/18/14 Allopurinol 300 mg PO DAILY 08/30/14 Folic Acid 1 mg PO DAILY #30 tablet 08/31/14 Amiodarone HCl 200 mg PO DAILY 10/16/15 Atorvastatin Calcium 80 mg PO BEDTIME 10/16/15 Cholecalciferol (Vitamin D3) [Vitamin D3] 2,000 unit PO DAILY 10/16/15 Ferrous Sulfate [Slow Release Iron] 65 mg PO BEDTIME 10/16/15 Hydroxychloroquine [Plaquenil*] 400 mg PO DAILY 10/16/15 Potassium Chloride 10 meq PO DAILY 10/16/15 Venlafaxine HCl [Venlafaxine HCl ER] 150 mg PO DAILY 10/17/15 Alprazolam [Xanax] 0.25 mg PO PRN PRN 05/01/17 Warfarin Sodium [Coumadin*] 10 mg PO SEECOM 05/01/17 Aspirin Chewable [Aspirin Chewable*] 81 mg PO DAILY #90 tab.chew 05/07/17 Levothyroxine [Synthroid*] 0.088 mg PO FLONS0UA #30 tab 05/07/17 Pantoprazole [Protonix Tab*] 40 mg PO BIDAC #60 tab 05/07/17 Bumetanide [Bumex] 2 mg PO DAILY 09/28/17 Cyanocobalamin (Vitamin B-12) [Vitamin B12] 5,000 mcg PO DAILY 09/28/17 Losartan Potassium 25 mg PO DAILY 09/28/17 Metolazone [Zaroxolyn*] 2.5 mg PO PRN PRN 09/28/17 Prednisone [Deltasone*] 40 mg PO DAILY #60 tab 09/29/17 New Medications: Prednisone [Deltasone*] 40 mg PO DAILY #60 tab Patient Discharge Instructions: Please f/u with Dr Waite and Dr Arroyo in 1 to 2 days post discharge. New medication. Prednisone 40mg Daily Diet: Regular Activity: Ad paco Followup: Maryam Gordillo MD [Primary Care Provider] - 1-2 Days Sreekanth Arroyo MD [ACTIVE - CAN ADMIT] - 1-2 Days
== END 2017-09-29 12:50 | disposition home or self-care (01) ==
LOC: ER 12:23 → ERHOLD 18:08 → 2ND 20:21
PROVIDERS: ADMIT Family Medicine; ATTEND Hospitalist
PROC: 30233N1 Transfusion of Nonautologous Red Blood Cells into Peripheral Vein, Percutaneous Approach (ICD-10-PCS; principal; 2017-09-28)
DX: D59.9 Acquired hemolytic anemia, unspecified (principal); D68.61 Antiphospholipid syndrome; I48.91 Unspecified atrial fibrillation; E03.9 Hypothyroidism, unspecified; I13.0 Hypertensive heart and chronic kidney disease with heart failure and stage 1 through stage 4 chronic kidney disease, or unspecified chronic kidney disease; N18.3 Chronic kidney disease, stage 3 (moderate); I50.22 Chronic systolic (congestive) heart failure; N17.9 Acute kidney failure, unspecified; Z95.2 Presence of prosthetic heart valve; Z79.01 Long term (current) use of anticoagulants
CPT/HCPCS: 36415 ×2; 36430; 80048; 80053 ×2; 80076; 81003; 83615; 83735 ×3; 85025 ×3; 85044; 85610; 85730; 86850; 86870; 86900; 86901; 86922 ×2; 93005; 99285; J3475; P9016 ×2; 81015; J7512

== ENCOUNTER 2018-04-24 16:34 | Inpatient (IN) | payer OTHER ==
--- OUTSIDE RECORDS SUMMARY | 2018-04-24 16:37 | XMS REPORT | Clinical Summary ---
:1970 Author Organization [facility] Address [address] [place] [address] Care Team Providers Name Role Phone CoreyAlexandertip Primary Care Provider Unavailable Allergies No Known Allergies Medications Medication Sig Dispensed Refills Start Date End Date Status allopurinol (ZYLOPRIM) TAKE ONE 0 08/23/2017 Active 300 MG tablet TABLET BY MOUTH ONCE DAILY amIODarone (PACERONE) Take 200 mg 0 05/25/2017 Active 200 MG tablet by mouth. atorvastatin (LIPITOR) Take 80 mg 0 04/21/2017 Active 80 MG tablet by mouth. BUMETanide (BUMEX) 1 MG Take 1 mg by 0 Active tablet mouth. folic acid (FOLVITE) 1 Take 1 mg by 0 Active MG tablet mouth. hydroxychloroquine 0 03/22/2015 Active (PLAQUENIL) 200 mg tablet levothyroxine Take 88 mcg 0 Active (SYNTHROID, LEVOXYL) 88 by mouth. mcg tablet losartan (COZAAR) 25 MG Take 25 mg 0 04/21/2017 Active tablet by mouth. metOLazone (ZAROXOLYN) Take 2.5 mg 0 06/19/2016 Active 2.5 MG tablet by mouth. metoprolol succinate XL Take 50 mg 0 09/29/2017 Active (TOPROL-XL) 50 mg 24 hr by mouth. tablet pantoprazole (PROTONIX) 0 04/17/2015 Active 40 MG EC tablet venlafaxine XR TAKE ONE 0 03/25/2015 Active (EFFEXOR-XR) 150 MG 24 CAPSULE BY hr capsule MOUTH EVERY DAY warfarin (COUMADIN) 10 TAKE 1 0 03/03/2016 Active MG tablet TABLET BY MOUTH EVERY DAY ALPRAZolam (XANAX) 0.25 Take 0.25 mg 0 04/10/2014 Active MG tablet by mouth. PROAIR HFA 90 0 09/20/2017 Active mcg/actuation inhaler predniSONE (DELTASONE) 0 08/23/2017 Active 20 mg tablet ferrous sulfate (SLOW Take 1 0 Active FE ORAL) tablet by mouth daily. acetaminophen (TYLENOL) Take 325 mg 0 Active 325 MG tablet by mouth daily. ergocalciferol, vitamin Take 1 0 Active D2, (VITAMIN D2 ORAL) tablet by mouth daily. cyanocobalamin, vitamin Take 1 0 Active B-12, (VITAMIN B-12 tablet by ORAL) mouth daily. aspirin (ECOTRIN) 81 MG Take 81 mg 0 Active enteric coated tablet by mouth daily. cephalexin (KEFLEX) 250 Take 500 mg 0 Active MG capsule by mouth 4 (four) times a day. aspirin-calcium Take 81 mg 0 Discontinued carbonate 81 mg-300 mg by mouth. 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; CKD (chronic kidney disease) stage 3, GFR 30-59 ml/min; AIHA (autoimmune hemolytic anemia); 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 after 04/23/2017 Family History Medical History Relation Name Comments Depression Mother Hyperlipidemia Mother Hyperlipidemia Sister Rheum arthritis Sister Relation Name Status Comments Mother Sister Social History Tobacco Use Types Packs/Day Years Used Date Former Smoker Cigarettes Quit: 10/28/2014 Smokeless Tobacco: Never Used Comments: Quit 3 years ago Alcohol Use Drinks/Week oz/Week Comments Yes 1 Cans of beer 0.6 Sex Assigned at Date Recorded Not on file Job Start Date Occupation Industry Not on file Not on file Not on file Travel History Travel Start Travel End No recent travel history available. Last Filed Vital Signs Vital Sign Reading Time Taken Blood Pressure 135/81 10/28/2017 11:28 AM CDT Pulse 88 10/28/2017 11:28 AM CDT Temperature 36.9 C (98.4 F) 10/28/2017 11:28 AM CDT Respiratory Rate - - Oxygen Saturation - - Inhaled Oxygen Concentration - - Weight 102 kg (225 lb) 10/28/2017 11:28 AM CDT Height 167.6 cm (5' 6") 10/28/2017 11:28 AM CDT Body Mass Index 36.32 10/28/2017 11:28 AM CDT Plan of Treatment Date Type Specialty Care Team Description 04/28/2018 Office Visit Rheumatology [place] [address] [facility] [address] [place] [address] Health Maintenance Due Date Last Done Comments MMR VACCINES (1 of 1 - Standard 01/05/1969 series) VARICELLA VACCINES (1 of 2 - 2-dose 01/05/1981 adolescent series) HEPATITIS B VACCINES (1 of 3 - Risk 01/05/1987 3-dose series) CERVICAL CANCER SCREENING 01/05/1989 INFLUENZA VACCINE 12/22/2017 BREAST CANCER SCREENING 01/05/2018 COLON CANCER SCREENING 01/05/2018 SHINGRIX VACCINE (1 of 2) 01/05/2018 IPV VACCINES Aged Out No longer eligible based on patient's age to complete this topic MENINGOCOCCAL VACCINE Aged Out No longer eligible based on patient's age to complete this topic Procedures Procedure Name Priority Date/Time Associated Diagnosis Comments DRVVT Routine 10/28/2017 12:24 Results for PM CDT this procedure are in the results section. DRVVC, DRVVT/DRVVC Routine 10/28/2017 12:24 Results for PM CDT this procedure are in the results section. CARDIOLIPIN ANTIBODIES Routine 10/28/2017 12:24 Antiphospholipid Results for PM CDT syndrome this procedure are in the results section. BETA-2 GLYCOPROTEIN 1 Routine 10/28/2017 12:24 Antiphospholipid Results for ANTIBODY, IGG AND IGM PM CDT syndrome this procedure are in the results section. LUPUS ANTICOAGULANT Routine 10/28/2017 12:24 Antiphospholipid Results for PANEL PM CDT syndrome this procedure are in the results section. URIC ACID LEVEL Routine 10/28/2017 12:24 Antiphospholipid Results for PM CDT syndrome this procedure are in the results section. ANTIEXTRACTABLE Routine 10/28/2017 12:24 Antiphospholipid Results for NUCLEAR ANTIGENS PM CDT syndrome this procedure are in the results section. ANTINUCLEAR Routine 10/28/2017 12:24 Antiphospholipid Results for ANTIBODIES, IFA PM CDT syndrome this procedure are in the results section. after 04/23/2017 Results Antiextractable Nuclear Antigens (10/28/2017 12:24 PM CDT) Ribonucleic antibody (CLASS C DRIVER) <0.2 0.0 - 0.9 AI [facility] Ruff antibody <0.2 0.0 - 0.9 AI [facility] Specimen Blood Narrative Performed At Performed at: - [facility] [place] [place] [facility] [address] [place], [place] [id number] Truck Unloader: Augustine Braden MD, Phone:[phone] Performing Organization Address [facility] Phone Number [facility] Antinuclear Antibodies, IFA (10/28/2017 12:24 PM CDT) Antinuclear antibodies (CHARLI) Negative [facility] Comment: Negative <1:80 Borderline1:80 Positive >1:80 Specimen Blood Narrative Performed At Performed at: - [facility] [place] [facility] [address] [place], [place] [id number] Truck Unloader: Augustine Braden MD, Phone:[phone] Performing Organization Address [facility] Phone Number [facility] DRVVC, DRVVT/DRVVC (10/28/2017 12:24 PM CDT) dRVVT 1:1 Mix 50.0 (H) 0.0 - 47.0 sec [facility] Narrative Performed At [facility]formed at: [facility] [address] [place], [id number] Truck Unloader: Kirill Almonte MD, Phone:[phone] Performing Organization Address City/[facility] Phone Number [facility] Beta-2 glycoprotein 1 antibody, IgG and IgM (10/28/2017 12:24 PM CDT) Beta-2 glycoprotein 1 <9 0 - 20 GPI IgG [facility] antibody, IgG Comment: units The reference interval reflects a 3SD or 99th percentile interval, which is thought to represent a potentially clinically significant result in accordance with the International Consensus Statement on the classification criteria for definitive antiphospholipid syndrome (APS). J Thromb Haem 2006;4:295-306. Beta-2 glycoprotein 1 <9 0 - 32 GPI IgM [facility] antibody, IgM Comment: units The reference interval reflects a 3SD or 99th percentile interval, which is thought to represent a potentially clinically significant result in accordance with the International Consensus Statement on the classification criteria for definitive antiphospholipid syndrome (APS). J Thromb Haem 2006;4:295-306. Specimen Blood Narrative Performed At Performed at:01 - [facility] [address], [id number] Truck Unloader: Kirill Almonte MD, Phone:[phone] Performing Organization Address [facility] Phone Number [facility] Lupus anticoagulant panel (10/28/2017 12:24 PM CDT) Dilute prothrombin time 129.5 (H) 0.0 - 55.0 sec [facility] dPT confirm ratio 1.09 0.00 - 1.40 Ratio [facility] Thrombin time 1:1 15.8 0.0 - 23.0 sec [facility] PTT lupus anticoagulant 47.6 0.0 - 51.9 sec [facility] DRVVT 85.3 (H) 0.0 - 47.0 sec [facility] Lupus reflex interpretation Comment: [facility] Comment: Results are consistent with the presence of a lupus anticoagulant. However, the dPT is markedly extended, as can be seen in patients receiving oral anticoagulant therapy (OAT). In general, OAT can reduce the accuracy of lupus anticoagulant testing and results obtain for patients receiving OAT should be interpreted with caution. NOTE: Only persistent lupus anticoagulants are thought to be of clinical significance. For this reason, repeat testing in 12 or more weeks after an initial positive result should be considered to confirm or refute the presence of a lupus anticoagulant, depending on clinical presentation. Results of lupus anticoagulant tests may be falsely positive in the presence of certain anticoagulant therapies. Specimen Blood Narrative Performed At Performed at:01 - [facility] [address], [id number] Truck Unloader: Kirill Almonte MD, Phone:[phone] Performing Organization Address [facility] Phone Number [facility] Cardiolipin antibodies (10/28/2017 12:24 PM CDT) Cardiolipin IgG 12 0 - 14 GPL U/mL [facility] Comment: Negative: <15 Indeterminate: 15 - 20 Low-Med Positive: >20 - 80 High Positive: >80 Cardiolipin IgM 14 (H) 0 - 12 MPL U/mL [facility] Comment: Negative: <13 Indeterminate: 13 - 20 Low-Med Positive: >20 - 80 High Positive: >80 Anticardiolipin Ab, IgA, qn <9 0 - 11 APL U/mL [facility] Comment: Negative: <12 Indeterminate: 12 - 20 Low-Med Positive: >20 - 80 High Positive: >80 Specimen Blood Narrative Performed At [facility]formed at: [facility] [address] [place], [place] [id number] Truck Unloader: Kirill Almonte MD, Phone:[phone] Performing Organization Address [facility] Phone Number [facility] DRVVT (10/28/2017 12:24 PM CDT) DRVVT 1.5 (H) 0.8 - 1.2 ratio [facility] Narrative Performed At [facility]formed at: [facility] [place] [id number] Truck Unloader: Kirill Almonte MD, Phone:[phone] Performing Organization Address City/[facility] Phone Number [facility] Uric acid level (10/28/2017 12:24 PM CDT) Uric acid 7.4 (H)Comment: Therapeutic target 2.5 - 7.1 mg/dL [facility] for gout patients: <6.0 Specimen Blood Narrative Performed At [facility]formed at: [facility] [address], [id number] Truck Unloader: Augustine Braden MD, Phone:[phone] Performing Organization Address [facility]/State[facility] Phone Number [facility] after 04/23/2017 Insurance Payer Benefit Plan / Group Subscriber ID Type Phone Address UHC MEDICARE UNITED/CARE IMPROVEMENT MCR xxxxxxxxx HMO Advance Directives Patient has advance care planning documents on file. For more information, please contact:Kali [id number] [place] [address]
--- OUTSIDE RECORDS SUMMARY | 2018-04-24 16:37 | XMS REPORT | Clinical Summary ---
:1970 Author Organization [facility] Address [address] [place] [address] Care Team Providers Name Role Phone [place] DO Unavailable Sarath Canchola Unavailable Unknownmeds, Provider Primary Care Provider Unavailable Allergies No Known Allergies Medications Medication Sig Dispensed Refills Start Date End Date Status venlafaxine (EFFEXOR-XR) Take 150 mg by 0 Active 150 MG 24 hr capsule mouth daily. folic acid (FOLVITE) 1 MG Take 1 mg by 0 Active tablet mouth daily. ALPRAZolam (XANAX) 0.25 MG Take 0.25 mg 0 04/10/2014 Active tablet by mouth every 8 (eight) hours as needed. hydroxychloroquine Take 400 mg by 0 Active (PLAQUENIL) 200 mg tablet mouth daily . levothyroxine (SYNTHROID, Take 50 mcg by 0 Active LEVOTHROID) 50 MCG tablet mouth Every morning on an empty stomach. cholecalciferol, vitamin Take 2,000 0 Active D3, 2,000 unit Tab Units by mouth daily. acetaminophen (TYLENOL) Take by mouth 0 Active 325 MG tablet every 4 (four) hours as needed for Pain. ferrous sulfate 47.5 mg Take 25 mg by 0 Active iron TbER mouth 2 (two) times daily . pantoprazole (PROTONIX) 40 Take 40 mg by 0 Active MG tablet mouth daily as needed . bumetanide (BUMEX) 1 MG Take 1 tablet 90 tablet 3 01/07/2016 Active tablet (1 mg total) by mouth daily. magnesium oxide (MAG-OX) Take 0.5 30 tablet 6 01/07/2016 Active 400 mg tablet tablets (200 mg total) by mouth daily. metoprolol (TOPROL-XL) 50 Take 1 tablet 90 tablet 0 01/07/2016 Active MG 24 hr tablet (50 mg total) by mouth daily. allopurinol (ZYLOPRIM) 300 Take 300 mg by 0 11/05/2015 Active MG tablet mouth daily. Active Problems Problem Noted Date Multifocal pneumonia 04/13/2016 S/P aortic valve replacement with metallic valve 12/20/2015 S/P MVR, AVR, tricuspid valve repair 12/17; ileus/SBO 12/20/2015 S/P TVR (tricuspid valve repair) 12/20/2015 Postprocedural hypotension 12/18/2015 Chronic atrial fibrillation 12/18/2015 Acute pulmonary insufficiency following thoracic surgery 12/18/2015 Postoperative anemia due to acute blood loss 12/18/2015 Thrombocytopenia 12/18/2015 Hyperglycemia 12/18/2015 Antiphospholipid syndrome 12/11/2015 Atrial flutter 12/11/2015 CKD (chronic kidney disease) stage 3, GFR 30-59 ml/min 12/11/2015 Anemia associated with acute blood loss 09/13/2015 Warfarin-induced coagulopathy 09/13/2015 NURY (acute kidney injury) 09/13/2015 Gastrointestinal hemorrhage 09/12/2015 Overview: UPDATED BY ICD10 SNOMED/IMO UPDATES Normochromic normocytic anemia 08/22/2015 NURY (acute kidney injury) 08/22/2015 Chronic anticoagulation 08/22/2015 Diabetes mellitus 08/22/2015 Acute respiratory failure with hypoxia 08/22/2015 Respiratory distress 08/18/2015 Bilateral pneumonia 08/18/2015 Acute exacerbation of CHF (congestive heart failure) 08/18/2015 Hypokalemia 05/21/2015 Severe dehydration 05/20/2015 Troponin level elevated 05/20/2015 Epistaxis 04/22/2015 Overview: Recurrent and severe despite attempts at cautery. Meanwhile, we cannot discontinue anticoagulation. 04/22/2015 Sarath Escobar MD Pack out tomorrow and possible explanation. 04/23/2015 Sarath Escobar MD Left atrial flutter by electrocardiogram 04/15/2015 Overview: Recurrent but a poor candidate [...] 11/21/2014 Ovarian cyst 08/12/2014 Lupus anticoagulant disorder 04/16/2014 Overview: 07/02/14 Progressive thrombus on MV [...] at next week. Sarath Escobar MD Diabetes Immunizations Name Dates Previously Given Next Due Influenza Three-TIV PF 5+ YRS 04/21/2015 Family History Medical History Relation Name Comments Drug abuse Brother Heart disease Brother Arthritis Sister Relation Name Status Comments Brother Father Alive Mother Alive Sister Alive Social History Tobacco Use Types Packs/Day Years Used Date Former Smoker 06 22 Quit: 07/01/2014 Smokeless Tobacco: Never Used Alcohol Use Drinks/Week oz/Week Comments Yes social occasions Sex Assigned at Date Recorded Not on file Job Start Date Occupation Industry Not on file Not on file Not on file Travel History Travel Start Travel End No recent travel history available. Last Filed Vital Signs Not on file Plan of Treatment Health Maintenance Due Date Last Done Comments INFLUENZA VACCINE 02/21/2018 Implants Implanted Type Area Food Service Manager Device Shelf Model / Serial / Identifier Expiration Lot Date Claudia Flynn,0.5cc - [id number] Bone N/A: MUSCULOSKELETAL 2014 [id number] / Implanted: Qty: 1 on 02/03/2013 by Chase Cope MD Neck TRANSPLANT [id number] / Kit,Surgiflow Thrombo Strl 8ml - [id number] Cement/F N/A: RENE 2013 [id number] / Implanted: Qty: 1 on 02/03/2013 by Chase Cope MD iller/Ad Neck / [id number] [id number] Spacer,Cervical Lordotic Peek [place] Zero-P Va Std Ti 8mm - [id number] Spine N/ A: [employer] 05/22/2022 [id number] / Implanted: Qty: 1 on 02/03/2013 by Chase Cope MD Neck / [id number] Screw,Cervical Selfdrill Zero-P Va Ti 3.7x16mm - [id number] Spine N/A: [employer] [id number] / Implanted: Qty: 2 on 02/03/2013 by Chase Cope MD Neck / [id number] Valve,Mitral Mosaic 31mm - [id number] Valves MEDTRONIC CARDIAC 07/30/2018 [id number] / Implanted: Qty: 1 on 01/01/2015 by David Awan MD SURGERY [id number] / Valve Mitrl [facility] Std Mstr 27mm [id number] - [id number] Valves N/A: ST EMILY 11/09/2020 [id number] / Implanted: Qty: 1 on 12/18/2015 by Wilber Gross MD Heart MED:CARDIAC SURG [id number] / Valve Aort [facility] Pedro 21mm - [id number] Valves N/A: ST EMILY 10/23/2017 [id number] / Implanted: Qty: 1 on 12/18/2015 by Wilber Gross MD Aorta MED:CARDIAC SURG [id number] / Results Not on fileafter 04/23/2017 Insurance Payer Benefit Plan / Subscriber ID Type Phone Address Group [facility]/BLUE BCBS ADV HMO xxxxxxxxxxxx [phone] [address] [place] [address] Advance Directives For more information, please contact:[address] [phone] Code Status Date Activated Date Inactivated Comments Full Code 04/13/2016 3:58 PM 04/17/2016 4:23 PM This code status was determined by: Patient Full Code 12/31/2015 11:17 AM 01/07/2016 11:31 PM This code status was determined by: Patient Full Code 12/18/2015 7:45 PM 12/31/2015 11:17 AM This code status was determined by: Patient Full Code 12/17/2015 8:16 PM 12/18/2015 7:45 PM This code status was determined by: Patient Full Code 12/17/2015 7:41 AM 12/17/2015 8:16 PM This code status was determined by: Patient
[2018-04-24 18:07] LABS: Absolute Lymphocytes (CBC) 0.9 K/uL (0.7-4.9); Absolute Monocytes 0.5 K/uL (0.1-1.3); Basophils % 1.1 % (0-1.3); Eosinophils % 2.4 % (0-4.4); Hematocrit 27.3 % (36.0-45.0); MCH 30.6 pg (27.0-35.0); MCV 88.6 fL (80-100); MPV 8.7 fL (7.6-11.3); Monocytes % 6.6 % (3.3-12.3); RBC Red Blood Cell Count 3.08 M/uL (3.86-4.86)
[2018-04-24 18:35] LABS: Albumin 3.9 g/dL (3.4-5.0); Bilirubin Total 0.7 mg/dL (0.2-1.0); Potassium 3.2 mmol/L (3.5-5.1); Protein, Total 6.8 g/dL (6.4-8.2)
--- NOTE | 2018-04-24 19:33 | EDPHYS ---
Physician Documentation [facility] Name: June Stokes Age: 48 yrs Sex: Female : 1970 Arrival Date: 04/24/2018 Time: 16:37 Bed 17 Private MD: TANIA ZUNIGA ED Physician Luis Portillo HPI: 04/24 16:56 This 48 yrs old Female presents to ER via Ambulatory with complaints of Nose jmm Bleed. 16:56 The patient presents with a nose bleed, that is apparently anterior, from the right jmm nare. Onset: The symptoms/episode began/occurred gradually, this morning. Associated signs and symptoms: Loss of consciousness: the patient experienced no loss of consciousness, Pertinent negatives: shortness of breath. This is a 48 year old female with a history of antiphospholipid syndrome, DM, CAD, hemolytic anemia that presents to the ED with a nose bleed patient states she packed her nose at home. Patient states her home INR read as 8. . 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 - Hysterectomy lp1 Historical: - Allergies: 16:41 No Known Allergies; la1 - Home Meds: 20:16 Allopurinol Oral [Active]; Amiodarone Oral [Active]; aspirin 325 mg Oral tab 1 tab once lp1 daily [Active]; atorvastatin 80 mg Oral tab 1 tab once daily [Active]; Bumetanide Oral [Active]; Coumadin Oral [Active]; Folic Acid Oral [Active]; Humalog Sub-Q [Active]; humulin [Active]; hydroxychloroquine 200 mg Oral tab 2 tabs once daily [Active]; levothyroxine 50 mcg tab 1 tab once daily [Active]; magnesium oxide 400 mg Oral cap daily [Active]; metolazone 2.5 mg Oral tab 1 tab once daily [Active]; Metoprolol Tartrate Oral [Active]; potassium chloride 20 mEq Oral TbER 1 tab once daily [Active]; prednisone 20 mg Oral tab once daily [Active]; venlafaxine 150 mg Oral cp24 1 cap once daily [Active]; - PMHx: 16:41 antiphospholipid syndrome; Diabetes - IDDM; heart disease; Hemolytic Anemia; la1 Hypertension; Hypothyroidism; mitral valve prolapse; - PSHx: 20:16 Mitral Valve replacement; Hysterectomy; R arm surgery; lp1 - Immunization history:: Adult Immunizations up to date. - Social history:: Smoking status: Patient/guardian denies using tobacco. - Ebola Screening: : No symptoms or risks identified at this time. ROS: 16:56 Constitutional: Negative for fever, chills, and weight loss. jmm 16:56 Neck: Negative for injury, pain, and swelling, Cardiovascular: Negative for chest pain, palpitations, and edema, Respiratory: Negative for shortness of breath, cough, wheezing, and pleuritic chest pain, Abdomen/GI: Negative for abdominal pain, nausea, vomiting, diarrhea, and constipation. 16:56 ENT: Positive for nose bleed. 16:56 All other systems are negative. Exam: 16:56 Head/Face: atraumatic. Chest/axilla: Normal chest wall appearance and motion. [facility] Cardiovascular: Regular rate and rhythm. No edema appreciated Respiratory: Normal respirations, no respiratory distress appreciated 16:56 Constitutional: The patient appears in no acute distress, alert, awake. 16:56 ENT: packing noted to both nostrils with mild bleeding appreciated, blood noted in the posterior pharynx. 16:56 Neck: ROM/movement: is normal. 16:56 Cardiovascular: Rate: normal, Rhythm: regular. 16:56 Respiratory: the patient does not display signs of respiratory distress, Respirations: normal, Breath sounds: are clear throughout. 16:56 Abdomen/GI: Inspection: abdomen appears normal, Bowel sounds: normal. 16:56 Skin: Appearance: Color: normal in color. 16:56 Neuro: Orientation: is normal, Mentation: is normal, Memory: is normal. 16:56 Psych: Behavior/mood is pleasant, cooperative. Vital Signs: 16:43 Pulse 72; Resp 16; Temp 97.2; Pulse Ox 98% on R/A; Weight 102.51 kg; Height 5 ft. 6 in. la1 (167.64 cm); 16:44 BP 163 / 77; la1 19:15 BP 154 / 98; Pulse 88; Resp 18; Pulse Ox 98% on R/A; lp1 20:13 BP 125 / 77; Pulse 90; Resp 18; Pulse Ox 99% on R/A; Pain 0/10; lp1 16:43 Body Mass Index 36.48 (102.51 kg, 167.64 cm) la1 MDM: 16:56 Patient medically screened. [facility] 19:29 Data reviewed: vital signs, nurses notes. Counseling: I had a detailed discussion with [facility] the patient and/or guardian regarding: the historical points, exam findings, and any diagnostic results supporting the discharge/admit diagnosis, lab results, the need for outpatient follow up. ED course: Will given 2 units of FFP. Observe patient in the ED with recheck of INR in the AM. I discussed the patient with Dr. Parker whom accepted admission. . 04/24 16:57 Order name: CBC with Diff; Complete Time: 18:10 [facility] 04/24 16:57 Order name: CMP; Complete Time: 18:39 [facility] 04/24 16:57 Order name: PT-INR; Complete Time: 18:43 [facility] 04/24 17:55 Order name: Type And Screen [facility] 04/24 18:43 Order name: Fresh Frozen Plasma [facility] 04/24 18:50 Order name: ABO/RH typing [facility] 04/24 16:57 Order name: Saline Lock; Complete Time: 18:44 [facility] 04/24 16:57 Order name: Misc. Order: Nose clamps; Complete Time: 18:44 [facility] 04/24 20:14 Order name: ABO/RH typing EDMD Administered Medications: No medications were administered Disposition: 04/25 07:36 Co-signature as Attending Physician, Luis Portillo MD I agree with the assessment and rancho plan of care. Disposition: 04/24/18 19:32 Hospitalization ordered by Jeff Parker for Observation. Preliminary diagnosis are Epistaxis, Poisoning by anticoagulants, accidental (unintentional). - Bed requested for Telemetry/MedSurg (observation). - Status is Observation. lp1 - Condition is Stable. - Problem is an acute exacerbation. - Symptoms are unchanged. UTI on Admission? No Signatures: Dispatcher [employer] EDMS Kelly Franks RN RN kl Anderson, Corey, MD MD cha Mickail, Joel, PA PA [facility] Ronel Donovan RN RN lp1 Jacques Spaulding RN RN la1 Corrections: (The following items were deleted from the chart) 04/24 20:04 19:32 Hospitalization Ordered by Jeff Parker MD for Observation. Preliminary diagnosis is Epistaxis; Poisoning by anticoagulants, accidental (unintentional). Bed requested for Telemetry/MedSurg (observation). Status is Observation. Condition is Stable. Problem is an acute exacerbation. Symptoms are unchanged. UTI on Admission? No. jmm 20:43 20:04 04/24/2018 19:32 Hospitalization Ordered by Jeff Parker MD for Observation. lp1 Preliminary diagnosis is Epistaxis; Poisoning by anticoagulants, accidental (unintentional). Bed requested for Telemetry/MedSurg (observation). Status is Observation. Condition is Stable. Problem is an acute exacerbation. Symptoms are unchanged. UTI on Admission? No. kl
--- NOTE | 2018-04-24 19:33 | ER ---
Nurse's Notes [facility] Name: June Stokes Age: 48 yrs Sex: Female : 1970 Arrival Date: 04/24/2018 Time: 16:37 Bed 17 Private MD: TANIA ZUNIGA Diagnosis: Epistaxis;Poisoning by anticoagulants, accidental (unintentional) Presentation: 04/24 16:41 Presenting complaint: Patient states: I am on Coumadin and I have a nose bleed, I la1 checked my INR at home and it was >8. Transition of care: patient was not received from another setting of care. Onset of symptoms was April 24, 2018. Risk Assessment: Do you want to hurt yourself or someone else? Patient reports no desire to harm self or others. Initial Sepsis Screen: Does the patient meet any 2 criteria? No. Patient's initial sepsis screen is negative. Does the patient have a suspected source of infection? No. Patient's initial sepsis screen is negative. Care prior to arrival: None. 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 - Hysterectomy lp1 Historical: - Allergies: 16:41 No Known Allergies; la1 - Home Meds: 20:16 Allopurinol Oral [Active]; Amiodarone Oral [Active]; aspirin 325 mg Oral tab 1 tab once lp1 daily [Active]; atorvastatin 80 mg Oral tab 1 tab once daily [Active]; Bumetanide Oral [Active]; Coumadin Oral [Active]; Folic Acid Oral [Active]; Humalog Sub-Q [Active]; humulin [Active]; hydroxychloroquine 200 mg Oral tab 2 tabs once daily [Active]; levothyroxine 50 mcg tab 1 tab once daily [Active]; magnesium oxide 400 mg Oral cap daily [Active]; metolazone 2.5 mg Oral tab 1 tab once daily [Active]; Metoprolol Tartrate Oral [Active]; potassium chloride 20 mEq Oral TbER 1 tab once daily [Active]; prednisone 20 mg Oral tab once daily [Active]; venlafaxine 150 mg Oral cp24 1 cap once daily [Active]; - PMHx: 16:41 antiphospholipid syndrome; Diabetes - IDDM; heart disease; Hemolytic Anemia; la1 Hypertension; Hypothyroidism; mitral valve prolapse; - PSHx: 20:16 Mitral Valve replacement; Hysterectomy; R arm surgery; lp1 - Immunization history:: Adult Immunizations up to date. - Social history:: Smoking status: Patient/guardian denies using tobacco. - Ebola Screening: : No symptoms or risks identified at this time. Screenin:12 Abuse screen: Denies threats or abuse. Nutritional screening: No deficits noted. em Tuberculosis screening: No symptoms or risk factors identified. Fall Risk None identified. Assessment: 17:10 General: Appears uncomfortable, Behavior is calm, cooperative. Pain: Denies pain. em Neuro: Level of Consciousness is awake, alert, obeys commands, Oriented to person, place, time, situation. Cardiovascular: Patient's skin is warm and dry. Respiratory: Airway is patent Respiratory effort is even, unlabored, Respiratory pattern is regular, symmetrical. GI: No signs and/or symptoms were reported involving the gastrointestinal system. : No signs and/or symptoms were reported regarding the genitourinary system. EENT: Nares with bleeding noted bilaterally. Derm: Skin is intact, Skin is pink, warm \T\ dry. Musculoskeletal: Range of motion: intact in all extremities. 17:20 Reassessment: I agree with previous assessment. hb 18:17 Reassessment: Patient appears in no apparent distress at this time. Patient and/or em family updated on plan of care and expected duration. Pain level reassessed. Patient is alert, oriented x 3, equal unlabored respirations, skin warm/dry/pink. Patient denies pain at this time. 18:40 Reassessment: INR 13, IMAN Carlos notified. hb 19:30 Reassessment: Patient appears in no apparent distress at this time. Patient is alert, lp1 oriented x 3, equal unlabored respirations, skin warm/dry/pink. nose clamp in place; patient aware of pending FFP transfusion. 20:13 Reassessment: Attempted to call report, nurse will call back. lp1 Vital Signs: 16:43 Pulse 72; Resp 16; Temp 97.2; Pulse Ox 98% on R/A; Weight 102.51 kg; Height 5 ft. 6 in. la1 (167.64 cm); 16:44 BP 163 / 77; la1 19:15 BP 154 / 98; Pulse 88; Resp 18; Pulse Ox 98% on R/A; lp1 20:13 BP 125 / 77; Pulse 90; Resp 18; Pulse Ox 99% on R/A; Pain 0/10; lp1 16:43 Body Mass Index 36.48 (102.51 kg, 167.64 cm) la1 ED Course: 16:37 Patient arrived in ED. sb2 16:38 TANIA ZUNIGA is Private Physician. sb2 16:41 Triage completed. la1 16:42 Arm band placed on left wrist. nm1 16:45 Terrance Patterson PA is PHCP. [facility] 16:45 Luis Portillo MD is Attending Physician. [facility] 17:10 Patient has correct armband on for positive identification. Call light in reach. Side em rails up X2. 17:16 Osman Crabtree LVN is Primary Nurse. em 19:02 T\T\S collected, blood band applied to patient. [facility] 19:30 Jeff Parker MD is Hospitalizing Provider. [facility] 19:30 IV is patent, is intact, 20g IV to R AC. lp1 20:12 No provider procedures requiring assistance completed. Patient admitted, IV remains in lp1 place. Administered Medications: No medications were administered Outcome: 19:32 Decision to Hospitalize by Provider. [facility] 20:13 Condition: stable lp1 20:13 Instructed on the need for admit. 20:31 Admitted to Tele accompanied by tech, via wheelchair, room 411, with chart, Report lp1 called to JERILYN George 20:43 Patient left the ED. 1 Signatures: Terrance Patterson PA PA [facility] Osman Crabtree LVN LVN em Ronel Donovan RN RN lp1 Jacques Spaulding RN RN la1 Judith Flanagan RN RN Jocelin Beebe 3 Pia Martinez 2
[2018-04-24] MEDS ORDERED: MORPHINE 4 MG/ML SYR IV PRN (19:54)
[2018-04-24] MEDS ORDERED: ONDANSETRON 4 MG/2 ML VIAL IV PRN (19:54)
[2018-04-24] MEDS ORDERED: METOLAZONE 2.5 MG TABLET PO PRN (19:57)
[2018-04-24] MEDS ORDERED: ALPRAZOLAM 0.25 MG TABLET PO PRN (19:57)
[2018-04-24] MEDS ORDERED: NA CHLORIDE 0.9% 1,000 ML IV SCH (20:00)
[2018-04-24] MEDS ORDERED: VITAMIN K (ADULT) 10 MG/ML SQ SCH (20:00)
[2018-04-24] MEDS ORDERED: NA CHLORIDE 0.9% 250 ML IV SCH (20:00)
[2018-04-24 21:19] VITALS: BMI 37.4
[2018-04-24] MEDS: ATORVASTATIN 80 MG TAB PO SCH (21:33)
[2018-04-24] MEDS ORDERED: NA CHLORIDE 0.9% 250 ML ONE ×2 (22:30→23:31)
[2018-04-24] MEDS ORDERED: PANTOPRAZOLE 40MG TABLET PO SCH (23:00)
[2018-04-24] MEDS ORDERED: PANTOPRAZOLE 40 MG INJ IVP SCH (23:00)
[2018-04-24 23:30] LABS: Hematocrit 22.2 % (36.0-45.0)
[2018-04-25] MEDS ORDERED: HYDROCORTISONE SUC 100 MG INJ IV ONE ×2 (01:24→19:53)
[2018-04-25] MEDS ORDERED: HYDROCODONE/APAP 10/325 TAB PO ONE (01:24)
[2018-04-25 01:42] LABS: Absolute Lymphocytes (CBC) 0.7 K/uL (0.7-4.9); Absolute Monocytes 0.3 K/uL (0.1-1.3); Absolute Neutrophil 4.3 K/uL (1.8-8.0); Basophils % 1.1 % (0-1.3); Eosinophils % 2.3 % (0-4.4); Hematocrit 21.8 % (36.0-45.0); Lymphocytes % 12.2 % (15.3-44.8); MCH 31.3 pg (27.0-35.0); MCV 87.9 fL (80-100); MPV 8.6 fL (7.6-11.3); Monocytes % 6.4 % (3.3-12.3); RBC Red Blood Cell Count 2.48 M/uL (3.86-4.86)
[2018-04-25 01:45] LABS: Protime INR 3.84
[2018-04-25 02:01] LABS: Potassium 3.2 mmol/L (3.5-5.1)
--- NOTE | 2018-04-25 02:18 | P.HP ---
Certification for Inpatient Patient admitted to: Inpatient With expected LOS: >2 Midnights Patient will require the following post-hospital care: None Practitioner: I am a practitioner with admitting privileges, knowledge of patient current condition, hospital course, and medical plan of care. Services: Services provided to patient in accordance with Admission requirements found in Title 42 Section 412.3 of the Code of Federal Regulations Patient History Date of Service: 04/24/18 Reason for admission: Acute blood loss anemia; coagulopathy History of Present Illness: Patient is a 48-year-old female with history of antiphospholipid antibody syndrome(APA), mechanical heart valve x2, hemolytic anemia, who presents to the hospital with epistaxis. Patient has significant bleeding from the nose most of the day so she came into the ER. In the emergency room she had an INR of greater than 13. She had a significant quite a lot of the. She states the only new medicine she recently start was Augmentin. She is on amiodarone and using amiodarone along with Coumadin can increase INR. However, this is not any medicine for her. She denies taking any other new medications. In the emergency room, she was given 2 units of FFP ease. It appears she was also be vitamin K. Because of her history of APA, and the mechanical heart valves she needs to have her INR closer to 3. She has a high risk of clotting and she needs to be monitored very closely. We may need to discuss the case with her technology coach Dr. Waite in the morning. At this time will continue to monitor her closely. She does mention to me that she has hemolytic anemia as well. The indices do not indicate she is currently undergoing any kind of significant hemolysis. However, she is taking prednisone because of this. Will continue this and monitor her vitals very closely. Monitor her H&H very closely. Recheck her INR since patient has just been given vitamin K and her FFP are completed. Allergies No Known Allergies Allergy (Verified 09/27/17 21:31) Home Medications: Metoprolol Succinate 50 mg PO DAILY 08/18/14 Allopurinol 300 mg PO DAILY 08/30/14 Folic Acid 1 mg PO DAILY #30 tablet 08/31/14 Amiodarone HCl 200 mg PO DAILY 10/16/15 Atorvastatin Calcium 80 mg PO BEDTIME 10/16/15 Cholecalciferol (Vitamin D3) [Vitamin D3] 2,000 unit PO DAILY 10/16/15 Ferrous Sulfate [Slow Release Iron] 65 mg PO BEDTIME 10/16/15 Hydroxychloroquine [Plaquenil*] 400 mg PO DAILY 10/16/15 Potassium Chloride 10 meq PO DAILY 10/16/15 Venlafaxine HCl [Venlafaxine HCl ER] 150 mg PO DAILY 10/17/15 Alprazolam [Xanax] 0.25 mg PO Q8HP PRN 05/01/17 Warfarin Sodium [Coumadin*] 10 mg PO SEECOM 05/01/17 Aspirin Chewable [Aspirin Chewable*] 81 mg PO DAILY #90 tab.chew 05/07/17 Bumetanide [Bumex] 2 mg PO DAILY 09/28/17 Cyanocobalamin (Vitamin B-12) [Vitamin B12] 5,000 mcg PO DAILY 09/28/17 Losartan Potassium 25 mg PO DAILY 09/28/17 metOLazone [Zaroxolyn*] 2.5 mg PO PRN PRN 09/28/17 Levothyroxine [Synthroid*] 0.1 mg PO 0630 04/24/18 Pantoprazole Sodium 40 mg PO DAILY 04/24/18 predniSONE [Deltasone*] 20 mg PO DAILY 04/24/18 - Past Medical/Surgical History Diabetic: No -: CHF, systolic, Low EF per patient -: Chronic renal disease -: Aortic Stenosis/Mitral valve disease -: Spinal stenosis with Neuropathy of L spine -: Atrial fibrillation -: Chronic anticoagulation -: Hemolytic Anemia -: Mitral valve repair due to Hyperclots, December 2014 -: Antiphospholipid Syndrome, Diagnosed in 2006 -: HTN -: Hypothyroidism -: Depression -: Mitral valve replaced x2 -: Hysterectomy -: Right arm bypass due to DVT Psychosocial/ Personal History: for 26 years, Children-2 boys, 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 - Family History Sister Medical History: Other (see notes) Notes: rheumatoid arthritis Brother Medical History: Heart disease - Social History Smoking Status: Former smoker Alcohol use: Yes CD- Drugs: No Caffeine use: Yes Review of Systems 10-point ROS is otherwise unremarkable Physical Examination - Vital Signs Temperature: 99 F Blood Pressure: 117/87 Pulse: 72 Respirations: 22 Pulse Ox (%): 98 - Physical Exam General: Alert, In no apparent distress, Oriented x3 HEENT: Atraumatic, PERRLA, Mucous membr. moist/pink, EOMI, Sclerae nonicteric Neck: Supple, 2+ carotid pulse no bruit, No LAD, Without JVD or thyroid abnormality Respiratory: Clear to auscultation bilaterally, Normal air movement Cardiovascular: Regular rate/rhythm, Normal S1 S2, Systolic murmur, Diastolic murmur Gastrointestinal: Normal bowel sounds, Soft and benign, Non-distended, No tenderness Musculoskeletal: No clubbing, No swelling, No tenderness Integumentary: No rashes Neurological: Normal gait, Normal speech, Normal strength at 5/5 x4 extr, Normal tone, Sensation intact, Cranial nerves 3-12 intact, Normal affect Lymphatics: No axilla or inguinal lymphadenopathy - Studies Laboratory Data (last 24 hrs) 04/24/18 17:46: PT 157.4 H, INR 13.00 H* 04/24/18 17:46: Sodium 141, Potassium 3.2 L, BUN 45 H, Creatinine 2.30 H, Glucose 125 H, Total Bilirubin 0.7, AST 28, ALT 37, Alkaline Phosphatase 131 H 04/24/18 17:46: WBC 7.8, Hgb 9.4 L, Hct 27.3 L, Plt Count 200 Assessment & Plan - Problems (Diagnosis) (1) Warfarin-induced coagulopathy Current Visit: Yes Status: Acute (2) H/O amiodarone therapy Current Visit: Yes Status: Acute (3) Hemolytic anemia Onset Date: 08/20/14 Current Visit: No Status: Acute (4) Right-sided epistaxis Onset Date: 10/17/15 Current Visit: No Status: Acute (5) Symptomatic anemia Onset Date: 09/28/17 Current Visit: No Status: Acute (6) Anti-phospholipid antibody syndrome Current Visit: No Status: Chronic (7) Atrial fibrillation Onset Date: 05/03/17 Current Visit: No Status: Chronic Qualifiers: Atrial fibrillation type: chronic Qualified Code(s): I48.2 - Chronic atrial fibrillation (8) CHF (congestive heart failure) Current Visit: No Status: Chronic Qualifiers: Qualified Code(s): I50.33 - Acute on chronic diastolic (congestive) heart failure (9) Chronic anticoagulation Current Visit: No Status: Chronic (10) H/O heart valve replacement with mechanical valve Current Visit: No Status: Chronic (11) History of pulmonary embolism Current Visit: No Status: Chronic (12) Hypertension Onset Date: 08/20/14 Current Visit: No Status: Chronic Qualifiers: Hypertension type: essential hypertension Qualified Code(s): I10 - Essential (primary) hypertension (13) Hypothyroidism Onset Date: 05/03/17 Current Visit: No Status: Chronic Qualifiers: Hypothyroidism type: unspecified Qualified Code(s): E03.9 - Hypothyroidism , unspecified - Plan Plan: 1. Continue with IV hydration and PPI twice daily 2. Monitor INR and H&H closely 3. May need to Consult Cardiology to assist and decision regarding amiodarone 4. Heart healthy diet 5. Hematology consultation-continue her home medications; may need to hold amiodarone pending cardiology eval 6. Serial H&H, and we will monitor PT and INR. 7. Transfuse if hemoglobin less than 8.0. 8. GI and DVT prophylaxis Discharge Plan: Home Plan to discharge in: Greater than 2 days - Advance Directives Does patient have a Living Will: No Does patient have a Durable POA for Healthcare: No - Code Status/Comfort Care Code Status Assessed: Yes Code Status: Full Code Critical Care: No Time Spent Managing PTS Care (In Minutes): 50
[2018-04-25] MEDS ORDERED: LEVOTHYROXINE SOD 0.088 MG TAB PO SCH (06:00)
[2018-04-25] MEDS: LEVOTHYROXINE SOD 0.1 MG TAB PO SCH (06:33)
[2018-04-25] MEDS: PANTOPRAZOLE 40MG TABLET PO SCH (06:33)
--- NOTE | 2018-04-25 07:39 | EKG ---
Test Date: 2018-04-25 Test Time: 02:28:10 Sheet Sorter: DONOVAN MEASUREMENT RESULTS: Intervals: Rate: 94 [place]: 192 QRSD: 144 QT: 462 QTc: 577 [place]: P: IA: 192 QRS: -44 T: 80 INTERPRETIVE STATEMENTS: Normal sinus rhythm Left axis deviation Left bundle branch block Abnormal ECG Compared to ECG 09/27/2017 14:13:10 Left-axis deviation now present Left bundle-branch block now present Atrial fibrillation no longer present ST (T wave) deviation no longer present Prolonged QT interval no longer present Electronically Signed On 04-25-18 07:38:09 COOK VACUUM KETTLE by Raleigh Reid
[2018-04-25] MEDS: predniSONE 10 MG TAB PO SCH ×2 (09:00→13:44)
[2018-04-25] MEDS: ALLOPURINOL 300 MG TAB PO SCH ×2 (09:00→13:45)
[2018-04-25] MEDS: METOPROLOL XL 50 MG TAB PO SCH ×2 (09:00→13:45)
[2018-04-25] MEDS: BUMETANIDE 1 MG TABLET PO SCH ×2 (09:00→13:43)
[2018-04-25] MEDS: FOLIC ACID 1 MG TABLET PO SCH ×2 (09:00→13:44)
[2018-04-25] MEDS ORDERED: predniSONE 10 MG TAB PO SCH (09:00)
[2018-04-25] MEDS: HYDROXYCHLOROQUINE 200MG TAB PO SCH ×2 (09:00→13:53)
[2018-04-25] MEDS: VENLAFAXINE HCL XR 75 MG CAP PO SCH ×2 (09:00→13:43)
[2018-04-25] MEDS: AMIODARONE HCL 200 MG TAB PO SCH ×2 (09:00→13:45)
[2018-04-25] MEDS ORDERED: PANTOPRAZOLE 40MG TABLET PO SCH (09:00)
[2018-04-25] MEDS: VITAMIN D 1000 UNIT TAB PO SCH ×2 (09:00→13:44)
[2018-04-25] MEDS: POTASSIUM CL SA 10 MEQ TAB PO SCH ×2 (09:00→13:44)
[2018-04-25 11:13] LABS: Absolute Lymphocytes (CBC) 0.5 K/uL (0.7-4.9); Absolute Monocytes 0.3 K/uL (0.1-1.3); Absolute Neutrophil 3.4 K/uL (1.8-8.0); Eosinophils % 2.9 % (0-4.4); Lymphocytes % 11.9 % (15.3-44.8); MCH 30.8 pg (27.0-35.0); MCV 88.5 fL (80-100); MPV 8.4 fL (7.6-11.3); Monocytes % 7.2 % (3.3-12.3); RBC Red Blood Cell Count 2.38 M/uL (3.86-4.86)
[2018-04-25 11:22] LABS: Albumin 3.4 g/dL (3.4-5.0); Bilirubin Total 0.8 mg/dL (0.2-1.0); Magnesium 1.8 mg/dL (1.8-2.4); Phosphorus 3.1 mg/dL (2.5-4.9); Potassium 3.6 mmol/L (3.5-5.1); Protein, Total 6.1 g/dL (6.4-8.2)
[2018-04-25 12:39] LABS: Protime INR 6.68
[2018-04-25] MEDS: ACETAMINOPHEN 500 MG TAB PO PRN (13:53)
--- NOTE | 2018-04-25 14:56 | P.PN ---
Subjective Date of Service: 04/25/18 Chief Complaint: Acute blood loss anemia; coagulopathy Patient seen and examined with RN. Chart reviewed. Case discussed with family and patient at bedside. Currently patient has no complaints to offer. Epistaxis has stopped at this time. Review of Systems 10-point ROS is otherwise unremarkable Physical Examination - Vital Signs Temperature: 98.4 F Blood Pressure: 122/64 Pulse: 89 Respirations: 18 Pulse Ox (%): 97 - Physical Exam General: Alert, In no apparent distress HEENT: Atraumatic, PERRLA, EOMI Neck: Supple, JVD not distended Respiratory: Clear to auscultation bilaterally, Normal air movement Cardiovascular: Regular rate/rhythm, Normal S1 S2 Gastrointestinal: Normal bowel sounds, No tenderness Musculoskeletal: No tenderness Integumentary: No rashes Neurological: Normal speech, Normal tone, Normal affect Lymphatics: No axilla or inguinal lymphadenopathy - Studies Laboratory Data (last 24 hrs) 04/25/18 01:10: Sodium 143, Potassium 3.2 L, BUN 43 H, Creatinine 2.30 H, Glucose 130 H 04/25/18 01:10: PT 45.9 H, INR 3.84, APTT 52.2 H 04/25/18 01:10: WBC 5.5 D, Hgb 7.7 L*, Hct 21.8 L, Plt Count 149 L D 04/24/18 23:20: Hgb 8.0 L, Hct 22.2 L D 04/24/18 17:46: PT 157.4 H, INR 13.00 H* 04/24/18 17:46: Sodium 141, Potassium 3.2 L, BUN 45 H, Creatinine 2.30 H, Glucose 125 H, Total Bilirubin 0.7, AST 28, ALT 37, Alkaline Phosphatase 131 H 04/24/18 17:46: WBC 7.8, Hgb 9.4 L, Hct 27.3 L, Plt Count 200 Medications List Reviewed: Yes Assessment And Plan - Current Problems (Diagnosis) (1) Warfarin-induced coagulopathy Current Visit: Yes Status: Acute Plan: Warfarin induced coagulopathy most likely 2.2 to Recent Augmentin Administration -With Epistaxsis -S.p FFP and Vit K x 1 -Hold warfarin and allopurinol -Daily INR. Currently Elevated. Will consider FFP if consistently elevated -Caution with Vit K due to h/o Mechanical Valve. -Bridge with Lovenox once INR is Subtherapeutic (2) Anemia Onset Date: 11/22/15 Current Visit: No Status: Acute Plan: Hgb of 7.7. Anemia of Chronic Disease. H.o Hemolytic Anemia -Lab work non indicative of hemolytic Anemia -Ordered for 1 PRBC -Repeat H.H Qualifiers: Anemia type: other cause Other causes of anemia: acute posthemorrhagic Qualified Code(s): D62 - Acute posthemorrhagic anemia (3) Chronic renal insufficiency Onset Date: 05/03/17 Current Visit: No Status: Chronic Plan: BUN/CR with ARF on CRF -IV fluids for now -BUN.CR improving today Qualifiers: Chronic kidney disease stage: stage 3 (moderate) Qualified Code(s): N18.3 - Chronic kidney disease, stage 3 (moderate) (4) Anti-phospholipid antibody syndrome Current Visit: No Status: Chronic Plan: H.O APA -On warfarin. On hold for now due to Supratherapuetic INR (5) Atrial fibrillation Onset Date: 05/03/17 Current Visit: No Status: Chronic Qualifiers: Atrial fibrillation type: chronic Qualified Code(s): I48.2 - Chronic atrial fibrillation (6) CHF (congestive heart failure) Current Visit: No Status: Chronic Qualifiers: Qualified Code(s): I50.33 - Acute on chronic diastolic (congestive) heart failure (7) Chronic anticoagulation Current Visit: No Status: Chronic (8) H/O heart valve replacement with mechanical valve Current Visit: No Status: Chronic Plan: INR needs to be between 2.5 to 3.5 (9) Hypertension Onset Date: 08/20/14 Current Visit: No Status: Chronic Qualifiers: Hypertension type: essential hypertension Qualified Code(s): I10 - Essential (primary) hypertension (10) Hypothyroidism Onset Date: 05/03/17 Current Visit: No Status: Chronic Qualifiers: Hypothyroidism type: unspecified Qualified Code(s): E03.9 - Hypothyroidism , unspecified - Plan Awaiting Clinical Improvement. INR is Still supratherapetic. will monitor closely Discharge Plan: Home Plan to discharge in: 48 Hours - Code Status/Comfort Care Code Status Assessed: Yes Critical Care: No
[2018-04-25 19:22] LABS: Hematocrit 23.7 % (36.0-45.0)
[2018-04-25 19:45] LABS: Protime INR 7.16
[2018-04-25] MEDS: ATORVASTATIN 80 MG TAB PO SCH (20:49)
[2018-04-25] MEDS ORDERED: NS 0.9% VIAL 10 ML ONE (20:56)
[2018-04-26 00:31] LABS: Hematocrit 22.2 % (36.0-45.0)
[2018-04-26] MEDS ORDERED: NA CHLORIDE 0.9% 250 ML ONE (01:26)
[2018-04-26] MEDS: ACETAMINOPHEN 500 MG TAB PO PRN (04:03)
[2018-04-26] MEDS: ALPRAZOLAM 0.25 MG TABLET PO PRN ×2 (04:04→23:58)
[2018-04-26 05:31] LABS: Albumin 3.3 g/dL (3.4-5.0); Bilirubin Total 1.4 mg/dL (0.2-1.0); Potassium 4.2 mmol/L (3.5-5.1)
[2018-04-26] MEDS: LEVOTHYROXINE SOD 0.1 MG TAB PO SCH (06:45)
[2018-04-26] MEDS: PANTOPRAZOLE 40MG TABLET PO SCH (06:45)
[2018-04-26] MEDS: BUMETANIDE 1 MG TABLET PO SCH (09:02)
[2018-04-26] MEDS: predniSONE 10 MG TAB PO SCH (09:02)
[2018-04-26] MEDS: VITAMIN D 1000 UNIT TAB PO SCH (09:03)
[2018-04-26] MEDS: FOLIC ACID 1 MG TABLET PO SCH (09:03)
[2018-04-26] MEDS: POTASSIUM CL SA 10 MEQ TAB PO SCH (09:03)
[2018-04-26] MEDS: METOPROLOL XL 50 MG TAB PO SCH (09:04)
[2018-04-26] MEDS: VENLAFAXINE HCL XR 75 MG CAP PO SCH (09:04)
[2018-04-26] MEDS: AMIODARONE HCL 200 MG TAB PO SCH (09:04)
[2018-04-26 10:47] LABS: Absolute Lymphocytes (CBC) 0.5 K/uL (0.7-4.9); Absolute Monocytes 0.5 K/uL (0.1-1.3); Absolute Neutrophil 5.6 K/uL (1.8-8.0); Basophils % 0.9 % (0-1.3); Eosinophils % 1.4 % (0-4.4); Hematocrit 22.4 % (36.0-45.0); Lymphocytes % 7.3 % (15.3-44.8); MCV 89.1 fL (80-100); MPV 8.3 fL (7.6-11.3); Monocytes % 7.4 % (3.3-12.3); RBC Red Blood Cell Count 2.51 M/uL (3.86-4.86)
--- NOTE | 2018-04-26 12:01 | EKG ---
Test Date: 2018-04-26 Test Time: 01:42:07 Keno Attendant: RT Pedersen MEASUREMENT RESULTS: Intervals: Rate: 84 [place]: QRSD: 136 QT: 458 QTc: 541 [place]: P: [place]: QRS: -47 T: 58 INTERPRETIVE STATEMENTS: Atrial fibrillation Left bundle branch block Abnormal ECG Compared to ECG 04/25/2018 02:28:10 Sinus rhythm no longer present Left-axis deviation no longer present Electronically Signed On 04-26-18 12:00:28 SURVEY ANALYST by Dav Odonnell
[2018-04-26] MEDS: HYDROXYCHLOROQUINE 200MG TAB PO SCH (12:11)
--- NOTE | 2018-04-26 17:12 | P.PN ---
Subjective Date of Service: 04/26/18 Chief Complaint: Acute blood loss anemia; coagulopathy Patient seen and examined with RN. Chart reviewed. Case discussed with family and patient at bedside. Currently patient has no complaints to offer. Epistaxis has stopped at this time. Review of Systems 10-point ROS is otherwise unremarkable Physical Examination - Vital Signs Temperature: 97.3 F Blood Pressure: 137/69 Pulse: 92 Respirations: 18 Pulse Ox (%): 98 - Physical Exam General: Alert, In no apparent distress HEENT: Atraumatic, PERRLA, EOMI Neck: Supple, JVD not distended Respiratory: Clear to auscultation bilaterally, Normal air movement Cardiovascular: Regular rate/rhythm, Normal S1 S2 Gastrointestinal: Normal bowel sounds, No tenderness Musculoskeletal: No tenderness Integumentary: No rashes Neurological: Normal speech, Normal tone, Normal affect Lymphatics: No axilla or inguinal lymphadenopathy - Studies Medications List Reviewed: Yes Assessment And Plan - Current Problems (Diagnosis) (1) Warfarin-induced coagulopathy Onset Date: 04/26/18 Current Visit: Yes Status: Acute Plan: Warfarin induced coagulopathy most likely 2.2 to Recent Augmentin Administration -With Epistaxsis -S.p FFP and Vit K x 1 -Hold warfarin and allopurinol -Daily INR. Currently Elevated. Will consider FFP if consistently elevated -Caution with Vit K due to h/o Mechanical Valve. -Bridge with Lovenox once INR is Subtherapeutic (2) Anemia Onset Date: 11/22/15 Current Visit: No Status: Acute Plan: Hgb of 7.8. Anemia of Chronic Disease. H.o Hemolytic Anemia -Lab work non indicative of hemolytic Anemia -Ordered for 1 PRBC -Repeat H.H Qualifiers: Anemia type: other cause Other causes of anemia: acute posthemorrhagic Qualified Code(s): D62 - Acute posthemorrhagic anemia (3) Chronic renal insufficiency Onset Date: 05/03/17 Current Visit: No Status: Chronic Plan: BUN/CR with ARF on CRF -IV fluids for now -BUN.CR improving today Qualifiers: Chronic kidney disease stage: stage 3 (moderate) Qualified Code(s): N18.3 - Chronic kidney disease, stage 3 (moderate) (4) Anti-phospholipid antibody syndrome Onset Date: 04/26/18 Current Visit: Yes Status: Chronic Plan: H.O APA -On warfarin. On hold for now due to Supratherapuetic INR (5) Atrial fibrillation Onset Date: 05/03/17 Current Visit: No Status: Chronic Qualifiers: Atrial fibrillation type: chronic Qualified Code(s): I48.2 - Chronic atrial fibrillation (6) CHF (congestive heart failure) Onset Date: 04/26/18 Current Visit: Yes Status: Chronic Qualifiers: Qualified Code(s): I50.33 - Acute on chronic diastolic (congestive) heart failure (7) Chronic anticoagulation Current Visit: No Status: Chronic (8) H/O heart valve replacement with mechanical valve Current Visit: No Status: Chronic Plan: INR needs to be between 2.5 to 3.5 (9) Hypertension Onset Date: 08/20/14 Current Visit: No Status: Chronic Qualifiers: Hypertension type: essential hypertension Qualified Code(s): I10 - Essential (primary) hypertension (10) Hypothyroidism Onset Date: 05/03/17 Current Visit: No Status: Chronic Qualifiers: Hypothyroidism type: unspecified Qualified Code(s): E03.9 - Hypothyroidism , unspecified - Plan Awaiting Clinical Improvement. INR is Still supratherapetic. will monitor closely Discharge Plan: Home Plan to discharge in: 72 Hours - Code Status/Comfort Care Code Status Assessed: Yes Critical Care: No
[2018-04-26] MEDS: ATORVASTATIN 80 MG TAB PO SCH (20:07)
[2018-04-27] MEDS ORDERED: FUROSEMIDE 40 MG/4 ML VIAL IV ONE (06:21)
[2018-04-27] MEDS ORDERED: METOLAZONE 5 MG TABLET PO PRN (06:22)
[2018-04-27] MEDS: PANTOPRAZOLE 40MG TABLET PO SCH (06:33)
[2018-04-27] MEDS: LEVOTHYROXINE SOD 0.1 MG TAB PO SCH (06:33)
[2018-04-27 06:49] LABS: Absolute Lymphocytes (CBC) 0.7 K/uL (0.7-4.9); Absolute Monocytes 0.3 K/uL (0.1-1.3); Absolute Neutrophil 6.8 K/uL (1.8-8.0); Basophils % 0.9 % (0-1.3); Eosinophils % 2.5 % (0-4.4); Hematocrit 25.2 % (36.0-45.0); Lymphocytes % 8.7 % (15.3-44.8); MCH 31.2 pg (27.0-35.0); MCV 88.3 fL (80-100); MPV 8.8 fL (7.6-11.3); Monocytes % 3.6 % (3.3-12.3); RBC Red Blood Cell Count 2.85 M/uL (3.86-4.86)
[2018-04-27 06:56] LABS: Protime INR 3.5
[2018-04-27 07:06] LABS: Magnesium 1.5 mg/dL (1.8-2.4); Phosphorus 2.3 mg/dL (2.5-4.9)
[2018-04-27 07:10] LABS: Albumin 3.5 g/dL (3.4-5.0); Bilirubin Total 1.2 mg/dL (0.2-1.0); Potassium 3.4 mmol/L (3.5-5.1); Protein, Total 6.4 g/dL (6.4-8.2)
--- NOTE | 2018-04-27 07:13 | RAD REPORT ---
EXAM DESCRIPTION: RAD - Chest Single View - 04/27/2018 6:32 am CLINICAL HISTORY: Pneumonia COMPARISON: May 05 TECHNIQUE: AP portable chest image was obtained 0619 hour . FINDINGS: Alveolar opacification is scattered throughout the mid and lower lung rodrigez bilaterally. Findings are focally more dense in the mid left lung field. Heart size is upper normal to slightly en larged but not substantially different. Vasculature is increased over the comparison. No large pleura l effusions seen. There is no pneumothorax. Sternotomy wires are in place. No acute bony abnormality seen. No acute aortic findings suspected. IMPRESSION: Airspace opacification throughout the mid and lower lung rodrigez bilaterally. Heart size is increased and there is vascular engorgement present. Chest findings are more consistent with a failure/ volume overload pattern. However, diffuse bilatera l pneumonia is possible if there are matching clinical and laboratory findings.
--- NOTE | 2018-04-27 08:04 | ECHO ---
HEIGHT: 5 ft 6 in WEIGHT: 232 lb 1.6 oz DATE OF STUDY: 04/26/[address]: Rashida Pate MD 2-DIMENSIONAL: YES M.MODE: YES DOPPLER: YES COLOR FLOW: YES TDS: YES PORTABLE: NO DEFINITY: NO BUBBLE STUDY: NO DIAGNOSIS: MECHANICAL VALVE CARDIAC HISTORY: CATHERIZATION: YES SURGERY: YES PROSTHETIC VALVE: YES PACEMAKER: NO MEASUREMENTS (cm) DIASTOLIC (NORMALS) SYSTOLIC (NORMALS) IVSd 0.9 (0.6-1.2) LA Diam 4.0 (1.9-4.0) LVEF 30-35% LVIDd 4.8 (3.5-5.7) LVIDs 3.9 (2.0-3.5) %FS 19% LVPWd 1.3 (0.6-1.2) Ao Diam 2.6 (2.0-3.7) 2 DIMENSIONAL ASSESSMENT: RIGHT ATRIUM: NORMAL LEFT ATRIUM: DILATED RIGHT VENTRICLE: NORMAL LEFT VENTRICLE: NORMAL TRICUSPID VALVE: NORMAL MITRAL VALVE: PROSTHETIC PULMONIC VALVE: NORMAL AORTIC VALVE: BIOPROSTHETIC PERICARDIAL EFFUSION: NONE AORTIC ROOT: NORMAL LEFT VENTRICULAR WALL MOTION: GLOBAL HYPOKINESIS. DOPPLER/COLOR FLOW: NO AORTIC STENOSIS. MILD AORTIC REGURGITATION. NO MITRAL STENOSIS. UNABLE TO DETERMINE MITRAL REGURGITATION. MILD TRICUSPID REGURGITATION. NORMAL RIGHT VENTRICULAR SYSTOLIC PRESSURE. COMMENTS: DEPRESSED LEFT VENTRICULAR EJECTION FRACTION. MILD TRICUSPID REGURGITATION. PROSTHETIC MITRAL VALVE. BIOPROSTHETIC AORTIC VALVE. MILD AORTIC REGURGITATION, OTHERWISE NORMAL PROSTHETIC VALVE DOPPLER. TECHNOLOGIST: ROBBY
[2018-04-27] MEDS: HYDROXYCHLOROQUINE 200MG TAB PO SCH (09:18)
[2018-04-27] MEDS: ACETAMINOPHEN 500 MG TAB PO PRN ×2 (09:18→20:50)
[2018-04-27] MEDS: VENLAFAXINE HCL XR 75 MG CAP PO SCH (09:19)
[2018-04-27] MEDS: METOPROLOL XL 50 MG TAB PO SCH (09:19)
[2018-04-27] MEDS: VITAMIN D 1000 UNIT TAB PO SCH (09:19)
[2018-04-27] MEDS: BUMETANIDE 1 MG TABLET PO SCH (09:20)
[2018-04-27] MEDS: ASPIRIN 81 MG CHEWABLE TABLET PO SCH (09:20)
[2018-04-27] MEDS: FOLIC ACID 1 MG TABLET PO SCH (09:20)
[2018-04-27] MEDS: predniSONE 10 MG TAB PO SCH (09:20)
[2018-04-27] MEDS: POTASSIUM CL SA 10 MEQ TAB PO SCH (09:20)
[2018-04-27] MEDS: AMIODARONE HCL 200 MG TAB PO SCH (09:20)
--- NOTE | 2018-04-27 10:15 | EKG ---
Test Date: 2018-04-26 Test Time: 19:51:49 Engineering Mathematician: RT Pedersen MEASUREMENT RESULTS: Intervals: Rate: 88 [place]: QRSD: 140 QT: 452 QTc: 546 [place]: P: [place]: QRS: -45 T: 59 INTERPRETIVE STATEMENTS: Atrial fibrillation Left bundle branch block Abnormal ECG Compared to ECG 04/26/2018 01:42:07 No significant changes Electronically Signed On 04-27-18 10:14:27 HOOP FLARING MACHINE OPERATOR HELPER by Raleigh Reid
[2018-04-27] MEDS ORDERED: FUROSEMIDE 20 MG/ 2ML VIAL IV ONE (11:21)
--- NOTE | 2018-04-27 15:50 | P.PN ---
Subjective Date of Service: 04/27/18 Chief Complaint: Acute blood loss anemia; coagulopathy Patient seen and examined with RN. Chart reviewed. Case discussed with family and patient at bedside. Currently patient has no complaints to offer. Epistaxis has stopped at this time. Review of Systems 10-point ROS is otherwise unremarkable Physical Examination - Vital Signs Temperature: 98.1 F Blood Pressure: 111/58 Pulse: 64 Respirations: 18 Pulse Ox (%): 99 - Physical Exam General: Alert, In no apparent distress HEENT: Atraumatic, PERRLA, EOMI Neck: Supple, JVD not distended Respiratory: Clear to auscultation bilaterally, Normal air movement Cardiovascular: Regular rate/rhythm, Normal S1 S2 Gastrointestinal: Normal bowel sounds, No tenderness Musculoskeletal: No tenderness Integumentary: No rashes Neurological: Normal speech, Normal tone, Normal affect Lymphatics: No axilla or inguinal lymphadenopathy - Studies Medications List Reviewed: Yes Assessment And Plan - Current Problems (Diagnosis) (1) Warfarin-induced coagulopathy Onset Date: 04/26/18 Current Visit: Yes Status: Acute Plan: Warfarin induced coagulopathy most likely 2.2 to Recent Augmentin Administration -With Epistaxsis which has now resolved -S.p FFP and Vit K x 1 -Hold warfarin and allopurinol -Daily INR. Currently at 3.50 -Caution with Vit K due to h/o Mechanical Valve. -Bridge with Lovenox once INR is Subtherapeutic (2) Anemia Onset Date: 11/22/15 Current Visit: No Status: Acute Plan: Hgb of 7.8. Anemia of Chronic Disease. H.o Hemolytic Anemia -Stable now Qualifiers: Anemia type: other cause Other causes of anemia: acute posthemorrhagic Qualified Code(s): D62 - Acute posthemorrhagic anemia (3) Chronic renal insufficiency Onset Date: 05/03/17 Current Visit: No Status: Chronic Plan: BUN/CR with ARF on CRF -IV fluids for now -BUN.CR improving today Qualifiers: Chronic kidney disease stage: stage 3 (moderate) Qualified Code(s): N18.3 - Chronic kidney disease, stage 3 (moderate) (4) Anti-phospholipid antibody syndrome Onset Date: 04/26/18 Current Visit: Yes Status: Chronic Plan: H.O APA -On warfarin. On hold for now due to Supratherapuetic INR (5) Atrial fibrillation Onset Date: 05/03/17 Current Visit: No Status: Chronic Qualifiers: Atrial fibrillation type: chronic Qualified Code(s): I48.2 - Chronic atrial fibrillation (6) CHF (congestive heart failure) Onset Date: 04/26/18 Current Visit: Yes Status: Chronic Qualifiers: Qualified Code(s): I50.33 - Acute on chronic diastolic (congestive) heart failure (7) Chronic anticoagulation Current Visit: No Status: Chronic (8) H/O heart valve replacement with mechanical valve Current Visit: No Status: Chronic Plan: INR needs to be between 2.5 to 3.5 (9) Hypertension Onset Date: 08/20/14 Current Visit: No Status: Chronic Qualifiers: Hypertension type: essential hypertension Qualified Code(s): I10 - Essential (primary) hypertension (10) Hypothyroidism Onset Date: 05/03/17 Current Visit: No Status: Chronic Qualifiers: Hypothyroidism type: unspecified Qualified Code(s): E03.9 - Hypothyroidism , unspecified - Plan Awaiting Clinical Improvement. INR is at 3.50. WIll recheck at 4. If between 2.5 to 3.5 will restart warfarin and bridge with lovenox if needed. Will observe for next 24 to 48hrs. Discharge Plan: Home Plan to discharge in: 72 Hours - Code Status/Comfort Care Code Status Assessed: Yes Critical Care: No
--- NOTE | 2018-04-27 16:06 | P.PN ---
Date of Service: 04/27/18 Patient developed complaints of shortness of breath. She just felt like she can't get a deep breath inside her lungs. Chest x-ray stat ordered. IV Lasix ordered. Lung sounds like basilar crackles. She has got FFP is and blood transfusion. Will diurese her and get a chest x-ray and proceed pending results.
[2018-04-27] MEDS ORDERED: POTASSIUM 25 MEQ EFFERV TAB PO ONE (16:31)
[2018-04-27 16:47] LABS: Absolute Lymphocytes (CBC) 0.2 K/uL (0.7-4.9); Absolute Monocytes 0.3 K/uL (0.1-1.3); Absolute Neutrophil 7.1 K/uL (1.8-8.0); Basophils % 0.9 % (0-1.3); Eosinophils % 0.9 % (0-4.4); Lymphocytes % 2.9 % (15.3-44.8); MCH 30.8 pg (27.0-35.0); MCV 89.8 fL (80-100); MPV 8.8 fL (7.6-11.3); Monocytes % 3.4 % (3.3-12.3); RBC Red Blood Cell Count 2.67 M/uL (3.86-4.86)
[2018-04-27 16:54] LABS: Protime INR 2.55
[2018-04-27] MEDS: POTASS/SODIUM PHOSPHATE 1 PKT POWD.PACK PO SCH ×3 (16:57→19:39)
[2018-04-27] MEDS ORDERED: Magnesium Sulfate 2gm IVPB 2 G/50 ML BAG IV ONE (17:00)
[2018-04-27 18:48] LABS: Blood Morphology Comment NOT SEEN (NOT SEEN); Platelet Estimate ADEQ; Urine White Blood Cell Casts OK
[2018-04-27 18:49] LABS: Anisocytosis 1+; Elliptocytes 1+; Polychromasia 1+
[2018-04-27] MEDS: ATORVASTATIN 80 MG TAB PO SCH (20:50)
[2018-04-28] LABS: Magnesium 2.1 mg/dL (1.8-2.4); Potassium 3.9 mmol/L (3.5-5.1)
[2018-04-28 06:09] LABS: Protime INR 1.63
[2018-04-28 06:18] LABS: Absolute Lymphocytes (CBC) 0.7 K/uL (0.7-4.9); Absolute Monocytes 0.3 K/uL (0.1-1.3); Absolute Neutrophil 5.2 K/uL (1.8-8.0); Basophils % 1.1 % (0-1.3); Hematocrit 23.9 % (36.0-45.0); Lymphocytes % 10.5 % (15.3-44.8); MCH 30.8 pg (27.0-35.0); MCV 88.3 fL (80-100); Monocytes % 4.7 % (3.3-12.3); RBC Red Blood Cell Count 2.71 M/uL (3.86-4.86)
[2018-04-28] MEDS: LEVOTHYROXINE SOD 0.1 MG TAB PO SCH (06:23)
[2018-04-28] MEDS: PANTOPRAZOLE 40MG TABLET PO SCH (06:23)
[2018-04-28 06:29] LABS: Albumin 3.6 g/dL (3.4-5.0); Bilirubin Total 1.8 mg/dL (0.2-1.0); Protein, Total 6.4 g/dL (6.4-8.2)
[2018-04-28 06:40] LABS: Platelet Estimate DECR; Urine White Blood Cell Casts OK
[2018-04-28 06:41] LABS: Blood Morphology Comment NOT SEEN (NOT SEEN)
[2018-04-28] MEDS: VENLAFAXINE HCL XR 75 MG CAP PO SCH (10:25)
[2018-04-28] MEDS: HYDROXYCHLOROQUINE 200MG TAB PO SCH (10:25)
[2018-04-28] MEDS: METOPROLOL XL 50 MG TAB PO SCH (10:25)
[2018-04-28] MEDS: predniSONE 10 MG TAB PO SCH (10:26)
[2018-04-28] MEDS: ASPIRIN 81 MG CHEWABLE TABLET PO SCH (10:26)
[2018-04-28] MEDS: VITAMIN D 1000 UNIT TAB PO SCH (10:26)
[2018-04-28] MEDS: BUMETANIDE 1 MG TABLET PO SCH (10:26)
[2018-04-28] MEDS: FOLIC ACID 1 MG TABLET PO SCH (10:26)
[2018-04-28] MEDS: AMIODARONE HCL 200 MG TAB PO SCH (10:26)
[2018-04-28] MEDS: POTASSIUM CL SA 10 MEQ TAB PO SCH (10:27)
[2018-04-28] MEDS: ENOXAPARIN 100 MG/ML SYR SQ SCH ×2 (12:16→21:33)
--- NOTE | 2018-04-28 15:45 | P.PN ---
Subjective Date of Service: 04/28/18 Chief Complaint: Acute blood loss anemia; coagulopathy Patient seen and examined with RN. Chart reviewed. Case discussed with family and patient at bedside. Currently patient has no complaints to offer. Epistaxis has stopped at this time. Restarted on Warfarin today. INR is Subtherapeutic at 1.6 today Review of Systems 10-point ROS is otherwise unremarkable Physical Examination - Vital Signs Temperature: 98.5 F Blood Pressure: 134/70 Pulse: 91 Respirations: 18 Pulse Ox (%): 94 - Physical Exam General: Alert, In no apparent distress HEENT: Atraumatic, PERRLA, EOMI Neck: Supple, JVD not distended Respiratory: Clear to auscultation bilaterally, Normal air movement Cardiovascular: Regular rate/rhythm, Normal S1 S2 Gastrointestinal: Normal bowel sounds, No tenderness Musculoskeletal: No tenderness Integumentary: No rashes Neurological: Normal speech, Normal tone, Normal affect Lymphatics: No axilla or inguinal lymphadenopathy - Studies Medications List Reviewed: Yes Assessment And Plan - Current Problems (Diagnosis) (1) Warfarin-induced coagulopathy Onset Date: 04/26/18 Current Visit: Yes Status: Acute Plan: Warfarin induced coagulopathy most likely 2.2 to Recent Augmentin Administration -With Epistaxsis which has now resolved -S.p FFP and Vit K x 1 -Currently INR at 1.6 -Restart Warfarin. Bridge with lovenox -Caution with Vit K due to h/o Mechanical Valve. (2) Anemia Onset Date: 11/22/15 Current Visit: No Status: Acute Plan: Hgb of 7.8. Anemia of Chronic Disease. H.o Hemolytic Anemia. Resovled now -Stable now Qualifiers: Anemia type: other cause Other causes of anemia: acute posthemorrhagic Qualified Code(s): D62 - Acute posthemorrhagic anemia (3) Chronic renal insufficiency Onset Date: 05/03/17 Current Visit: No Status: Chronic Plan: BUN/CR with ARF on CRF -IV fluids for now -BUN.CR improving today Qualifiers: Chronic kidney disease stage: stage 3 (moderate) Qualified Code(s): N18.3 - Chronic kidney disease, stage 3 (moderate) (4) Anti-phospholipid antibody syndrome Onset Date: 04/26/18 Current Visit: Yes Status: Chronic Plan: H.O APA -On warfarin. Restarted now (5) Atrial fibrillation Onset Date: 05/03/17 Current Visit: No Status: Chronic Qualifiers: Atrial fibrillation type: chronic Qualified Code(s): I48.2 - Chronic atrial fibrillation (6) CHF (congestive heart failure) Onset Date: 04/26/18 Current Visit: Yes Status: Chronic Qualifiers: Qualified Code(s): I50.33 - Acute on chronic diastolic (congestive) heart failure (7) Chronic anticoagulation Current Visit: No Status: Chronic (8) H/O heart valve replacement with mechanical valve Current Visit: No Status: Chronic Plan: INR needs to be between 2.5 to 3.5 (9) Hypertension Onset Date: 08/20/14 Current Visit: No Status: Chronic Qualifiers: Hypertension type: essential hypertension Qualified Code(s): I10 - Essential (primary) hypertension (10) Hypothyroidism Onset Date: 05/03/17 Current Visit: No Status: Chronic Qualifiers: Hypothyroidism type: unspecified Qualified Code(s): E03.9 - Hypothyroidism , unspecified - Plan Awaiting Clinical Improvement. INR is at 1.60. We started back on warfarin today bridged with Lovenox. Anticipate discharge in next 24 hr if INR continues to improve Discharge Plan: Home Plan to discharge in: 48 Hours - Code Status/Comfort Care Code Status Assessed: Yes Critical Care: No
[2018-04-28 16:13] LABS: Protime INR 1.7
[2018-04-28] MEDS ORDERED: WARFARIN SODIUM 5 MG TAB PO SCH (17:00)
[2018-04-28] MEDS: ATORVASTATIN 80 MG TAB PO SCH (21:33)
[2018-04-29] MEDS: LEVOTHYROXINE SOD 0.1 MG TAB PO SCH (06:04)
[2018-04-29] MEDS: PANTOPRAZOLE 40MG TABLET PO SCH (06:04)
[2018-04-29 06:19] LABS: Absolute Lymphocytes (CBC) 0.6 K/uL (0.7-4.9); Absolute Monocytes 0.3 K/uL (0.1-1.3); Absolute Neutrophil 5.1 K/uL (1.8-8.0); Basophils % 0.9 % (0-1.3); Eosinophils % 2.5 % (0-4.4); Hematocrit 24.1 % (36.0-45.0); Lymphocytes % 9.8 % (15.3-44.8); MCH 31.3 pg (27.0-35.0); MCV 88.3 fL (80-100); MPV 8.5 fL (7.6-11.3); Monocytes % 4.9 % (3.3-12.3); RBC Red Blood Cell Count 2.73 M/uL (3.86-4.86)
[2018-04-29 06:32] LABS: Albumin 3.6 g/dL (3.4-5.0); Bilirubin Total 1.9 mg/dL (0.2-1.0); Potassium 3.5 mmol/L (3.5-5.1); Protein, Total 6.4 g/dL (6.4-8.2)
[2018-04-29] MEDS ORDERED: POTASSIUM 25 MEQ EFFERV TAB PO ONE (07:18)
[2018-04-29] MEDS: VITAMIN D 1000 UNIT TAB PO SCH (08:15)
[2018-04-29] MEDS: HYDROXYCHLOROQUINE 200MG TAB PO SCH (08:15)
[2018-04-29] MEDS: ENOXAPARIN 100 MG/ML SYR SQ SCH (08:15)
[2018-04-29] MEDS: AMIODARONE HCL 200 MG TAB PO SCH (08:15)
[2018-04-29] MEDS: METOPROLOL XL 50 MG TAB PO SCH (08:16)
[2018-04-29] MEDS: FOLIC ACID 1 MG TABLET PO SCH (08:16)
[2018-04-29] MEDS: BUMETANIDE 1 MG TABLET PO SCH (08:16)
[2018-04-29] MEDS: POTASSIUM CL SA 10 MEQ TAB PO SCH (08:16)
[2018-04-29] MEDS: predniSONE 10 MG TAB PO SCH (08:17)
[2018-04-29] MEDS: ASPIRIN 81 MG CHEWABLE TABLET PO SCH (08:18)
[2018-04-29] MEDS: VENLAFAXINE HCL XR 75 MG CAP PO SCH (08:18)
--- NOTE | 2018-04-29 08:33 | EKG ---
Test Date: 2018-04-28 Test Time: 20:19:41 Geriatrician: RT Brady MEASUREMENT RESULTS: Intervals: Rate: 92 WV: QRSD: 138 QT: 450 QTc: 556 Dorena: P: WV: QRS: -48 T: 53 INTERPRETIVE STATEMENTS: Atrial fibrillation Left axis deviation Left bundle branch block Abnormal ECG Compared to ECG 04/26/2018 19:51:49 no significant change from previous ECG Electronically Signed On 04-29-18 08:33:05 TRUST ADMINISTRATOR by Raleigh Reid
[2018-04-29] MEDS ORDERED: LOSARTAN POTASSIUM 50 MG TABLET PO SCH (09:00)
[2018-04-29 12:03] VITALS: O2SAT 95
[2018-04-29 12:28] VITALS: BP 111/67; TEMP 96.8
--- NOTE | 2018-04-29 15:52 | P.DS ---
Admission Date: 04/25/18 Discharge Date: 04/29/18 Disposition: ROUTINE DISCHARGE Discharge Condition: GOOD Reason for Admission: Acute blood loss anemia; coagulopathy - Problems (1) Warfarin-induced coagulopathy Onset Date: 04/26/18 Status: Acute (2) Anemia Onset Date: 11/22/15 Status: Acute Qualifiers: Anemia type: other cause Other causes of anemia: acute posthemorrhagic Qualified Code(s): D62 - Acute posthemorrhagic anemia (3) Chronic renal insufficiency Onset Date: 05/03/17 Status: Chronic Qualifiers: Chronic kidney disease stage: stage 3 (moderate) Qualified Code(s): N18.3 - Chronic kidney disease, stage 3 (moderate) (4) Anti-phospholipid antibody syndrome Onset Date: 04/26/18 Status: Chronic (5) Atrial fibrillation Onset Date: 05/03/17 Status: Chronic Qualifiers: Atrial fibrillation type: chronic Qualified Code(s): I48.2 - Chronic atrial fibrillation (6) CHF (congestive heart failure) Onset Date: 04/26/18 Status: Chronic Qualifiers: Qualified Code(s): I50.33 - Acute on chronic diastolic (congestive) heart failure (7) Chronic anticoagulation Status: Chronic (8) H/O heart valve replacement with mechanical valve Status: Chronic (9) Hypertension Onset Date: 08/20/14 Status: Chronic Qualifiers: Hypertension type: essential hypertension Qualified Code(s): I10 - Essential (primary) hypertension (10) Hypothyroidism Onset Date: 05/03/17 Status: Chronic Qualifiers: Hypothyroidism type: unspecified Qualified Code(s): E03.9 - Hypothyroidism , unspecified Brief History of Present Illness: Patient is a 48-year-old female with history of antiphospholipid antibody syndrome(APA), mechanical heart valve x2, hemolytic anemia, who presents to the hospital with epistaxis. Patient has significant bleeding from the nose most of the day so she came into the ER. In the emergency room she had an INR of greater than 13. She had a significant quite a lot of the. She states the only new medicine she recently start was Augmentin. She is on amiodarone and using amiodarone along with Coumadin can increase INR. However, this is not any medicine for her. She denies taking any other new medications. In the emergency room, she was given 2 units of FFP ease. It appears she was also be vitamin K. Because of her history of APA, and the mechanical heart valves she needs to have her INR closer to 3. She has a high risk of clotting and she needs to be monitored very closely. We may need to discuss the case with her rn rehabilitation Dr. Waite in the morning. At this time will continue to monitor her closely. She does mention to me that she has hemolytic anemia as well. The indices do not indicate she is currently undergoing any kind of significant hemolysis. However, she is taking prednisone because of this. Will continue this and monitor her vitals very closely. Monitor her H&H very closely. Recheck her INR since patient has just been given vitamin K and her FFP are completed. Hospital Course: Overall during the hospital stay patient main stable Patient was initially admitted to the hospital for warfarin coagulopathy. Patient was recently started on amoxicillin after her dentist appointment. After which her INR was checked which was within normal limits. However within 7 days her INR was more than 13 and thus she started having appetite this and decision decided to come to the ER. Patient was then admitted to the hospital and warfarin was held. Patient was given vitamin K and FFP x1 and trended down while here in the hospital. Patient on day 4 after her INR was less than 2. Patient was also bridge with Lovenox here in the hospital. Patient then was discharged home once her appetite is in her finances trending up. Patient was asked to follow up with their heme oncologist along with her hammer mill operator for further monitoring of her INR. Patient takes warfarin for her mechanical valve replacement and anti phospholipid syndrome. Patient's INR goal is 2.5-4.5. Patient should not be receiving any vitamin K due to her history of mechanical valve replacement. Patient was made aware of the disease process and the restriction with the disease process. Patient demonstrated understanding and thus was discharged home under stable condition. Patient was given prescription for Lovenox to continue until her INR is therapeutic Vital Signs/Physical Exam: Temp Pulse Resp BP Pulse Ox 96.8 F 96 H 20 111/67 96 04/29/18 12:00 04/29/18 12:00 04/29/18 12:00 04/29/18 12:00 04/29/18 12:00 General: Alert, In no apparent distress HEENT: Atraumatic, PERRLA, EOMI Neck: Supple, JVD not distended Respiratory: Clear to auscultation bilaterally, Normal air movement Cardiovascular: Regular rate/rhythm, Normal S1 S2 Gastrointestinal: Normal bowel sounds, No tenderness Musculoskeletal: No tenderness Integumentary: No rashes Neurological: Normal speech, Normal tone, Normal affect Lymphatics: No axilla or inguinal lymphadenopathy Laboratory Data at Discharge: WBC 6.2 K/uL (4.3-10.9) 04/29/18 05:47 Hgb 8.5 g/dL (12.0-15.0) L 04/29/18 05:47 Hct 24.1 % (36.0-45.0) L 04/29/18 05:47 Plt Count 201 K/uL (152-406) D 04/29/18 05:47 PT 20.2 SECONDS (9.5-12.5) H 04/28/18 15:57 INR 1.70 04/28/18 15:57 APTT 38.6 SECONDS (24.3-36.9) H 04/28/18 15:57 Sodium 140 mmol/L (136-145) 04/29/18 05:47 Potassium 3.5 mmol/L (3.5-5.1) 04/29/18 05:47 BUN 43 mg/dL (7-18) H 04/29/18 05:47 Creatinine 2.20 mg/dL (0.55-1.3) H 04/29/18 05:47 Glucose 99 mg/dL (74-106) 04/29/18 05:47 Phosphorus 2.3 mg/dL (2.5-4.9) L 04/27/18 05:35 Magnesium 2.1 mg/dL (1.8-2.4) D 04/27/18 23:15 Total Bilirubin 1.9 mg/dL (0.2-1.0) H 04/29/18 05:47 AST 27 U/L (15-37) 04/29/18 05:47 ALT 46 U/L (12-78) 04/29/18 05:47 Alkaline Phosphatase 205 U/L (45-117) H 04/29/18 05:47 Home Medications: Metoprolol Succinate 50 mg PO DAILY 08/18/14 Allopurinol 300 mg PO DAILY 08/30/14 Folic Acid 1 mg PO DAILY #30 tablet 08/31/14 Amiodarone HCl 200 mg PO DAILY 10/16/15 Atorvastatin Calcium 80 mg PO BEDTIME 10/16/15 Cholecalciferol (Vitamin D3) [Vitamin D3] 2,000 unit PO DAILY 10/16/15 Ferrous Sulfate [Slow Release Iron] 65 mg PO BEDTIME 10/16/15 Hydroxychloroquine [Plaquenil*] 400 mg PO DAILY 10/16/15 Potassium Chloride 10 meq PO DAILY 10/16/15 Venlafaxine HCl [Venlafaxine HCl ER] 150 mg PO DAILY 10/17/15 Alprazolam [Xanax] 0.25 mg PO Q8HP PRN 05/01/17 Warfarin Sodium [Coumadin*] 10 mg PO SEECOM 05/01/17 Aspirin Chewable [Aspirin Chewable*] 81 mg PO DAILY #90 tab.chew 05/07/17 Bumetanide [Bumex] 2 mg PO DAILY 09/28/17 Cyanocobalamin (Vitamin B-12) [Vitamin B12] 5,000 mcg PO DAILY 09/28/17 Losartan Potassium 25 mg PO DAILY 09/28/17 metOLazone [Zaroxolyn*] 2.5 mg PO PRN PRN 09/28/17 Levothyroxine [Synthroid*] 0.1 mg PO 0630 04/24/18 Pantoprazole Sodium 40 mg PO DAILY 04/24/18 predniSONE [Deltasone*] 20 mg PO DAILY 04/24/18 Enoxaparin Sodium [Lovenox 100 MG INJ] 100 mg SQ BID #30 syr 04/29/18 New Medications: Enoxaparin Sodium [Lovenox 100 MG INJ] 100 mg SQ BID #30 syr Diet: Regular Activity: Ad paco Followup: Maryam Gordillo MD [ACTIVE - CAN ADMIT] - 1 Week (Call for appointment) Malik Nicole MD [Primary Care Provider] -
== END 2018-04-29 13:30 | disposition home or self-care (01) | DRG 813 ==
LOC: ER 16:34 → ERHOLD 19:33 → 4TH 20:35 → OBSVTOIN 04-25 02:12
PROVIDERS: ADMIT Hospitalist; ATTEND Family Medicine
PROC: 30233K1 Transfusion of Nonautologous Frozen Plasma into Peripheral Vein, Percutaneous Approach (ICD-10-PCS; principal; 2018-04-24)
PROC: 30233N1 Transfusion of Nonautologous Red Blood Cells into Peripheral Vein, Percutaneous Approach (ICD-10-PCS; 2018-04-26)
DX: D68.32 Hemorrhagic disorder due to extrinsic circulating anticoagulants (principal); I50.33 Acute on chronic diastolic (congestive) heart failure; D62 Acute posthemorrhagic anemia; D68.61 Antiphospholipid syndrome; I13.0 Hypertensive heart and chronic kidney disease with heart failure and stage 1 through stage 4 chronic kidney disease, or unspecified chronic kidney disease; R04.0 Epistaxis; T45.515A Adverse effect of anticoagulants, initial encounter; Y92.019 Unspecified place in single-family (private) house as the place of occurrence of the external cause; I48.2 Chronic atrial fibrillation; Z95.4 Presence of other heart-valve replacement; Z79.01 Long term (current) use of anticoagulants; N18.3 Chronic kidney disease, stage 3 (moderate); E03.9 Hypothyroidism, unspecified; Z87.891 Personal history of nicotine dependence; Z86.711 Personal history of pulmonary embolism
CPT/HCPCS: 36415; 36430; 71045; 80048; 80053; 82962; 83615; 83735; 84100; 84132; 85014; 85018; 85025; 85610; 85730; 86850; 86870; 86900; 86901; 86922; 93005; 93306; 99285; C9113; J1650; J1720; J1940; J3430; J3475; J7030; J7512; P9016; P9059